=== PATIENT | male | born 1940 | race Caucasian/White ===

== ENCOUNTER 2017-07-01 19:23 | Inpatient (IN) | payer MEDICARE, BC ==
--- NOTE | 2017-07-01 19:51 | EDM.PDOC ---
ED HPI GENERAL MEDICAL PROBLEM - General Chief Complaint: Respiratory Problem Stated Complaint: [facility] Time Seen by Provider: 07/01/17 19:51 Source of Information: Reports: Patient, EMS Notes Reviewed History Limitations: Reports: No Limitations - History of Present Illness INITIAL COMMENTS - FREE TEXT/NARRATIVE: 76-year-old male presents the ED with his family members. Apparently he's been running a temperature at home for 2 days increased productive cough and shortness of breath on minimal exertion. Can lay down to sleep at all. In using his home nebulizer with minimal improvement. Off sounds very productive and apparently has slight green color to it no blood has been appreciated. O2 sats were in the low 80s when paramedics arrived. Apparently he is on oxygen 2 L/m at all times. He was placed on 6 L/m by the paramedics and arrived with sats of 97%. On reduction of his oxygen level to 4 L/m he remains 95-97% at rest. 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 Apparently his appetite is about half normal. He has not received any medication for fever or chills today. He did receive a DuoNeb treatment en route to the hospital by paramedics. Onset: Gradual (Family members report that he sounded very congested on Friday , June 27 during their Easter get-together. His breathing has continued to worsen since that time.) Onset Date: 06/26/17 Duration: Day(s):, Getting Worse Location: Reports: Chest (Increased trouble breathing working hard to breathe poor appetite fever over the last 48 hours for sure. No severe chills identified by any family member. Does have a productive sounding cough. Not seemed to get much improvement with his home nebulizer treatments.) Severity: Moderate Improves with: Reports: None Worsens with: Reports: Movement Context: Reports: Sick Contact. Denies: Activity, Lifting, Trauma, Other Associated Symptoms: Reports: Cough, cough w sputum, Fever/Chills, Loss of Appetite, Malaise, Shortness of Breath, Weakness. 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) (Just his breathing treatments.) - Related Data Allergies Allergy/AdvReac Type Severity Reaction Status Date / Time No Known Allergies Allergy Verified 07/01/17 19:26 Home Meds: Home Meds Albuterol Sulfate [Albuterol Sulfate HFA] 2 puff IH ASDIRECTED PRN 04/02/14 [ History] Aspirin [Halfprin] 81 mg PO DAILY 04/02/14 [History] Budesonide [Pulmicort] 0.5 mg INH DAILY 04/02/14 [History] Cyanocobalamin/Folic Acid [Vitamin J73-[id number] Acid] 1,000 mcg PO DAILY 04/02/14 [ History] Fish Oil/DHA/EPA [Fish Oil 1,200 MG] 1 cap PO DAILY 04/02/14 [History] Formoterol [Perforomist] 20 mcg INH BID 04/02/14 [History] Lisinopril 10 mg PO DAILY 04/02/14 [History] Multivitamin [Daily Vitamin] 1 tab PO DAILY 04/02/14 [History] Omeprazole [Prilosec] 20 mg PO DAILY 04/02/14 [History] Tiotropium [Spiriva] 18 mcg INH DAILY 04/02/14 [History] Vitamin E 400 unit PO ASDIRECTED 04/02/14 [History] Calcium Carbonate/Vitamin D3 [Calcium 600-Vit D3 500 Softgel] 1 cap PO DAILY 06/15 [History] Docusate Sodium [Colace] 100 mg PO DAILY PRN 07/01/17 [History] Past Medical History Cardiovascular History: Reports: Hypertension Respiratory History: Reports: COPD Musculoskeletal History: Reports: Other (See Below) Other Musculoskeletal History: kyphoplasty/ hip surgery Neurological History: Reports: CVA Oncologic (Cancer) History: Reports: Other (See Below) Other Oncologic History: lip cancer Social & Family History - Tobacco Use Smoking Status *Q: Former Smoker Years of Tobacco use: 60 - Alcohol Use Days Per Week of Alcohol Use: 1 Number of Drinks Per Day: 6 Total Drinks Per Week: 6 - Recreational Drug Use Recreational Drug Use: No - Living Situation & Occupation Living situation: Reports: Occupation: Retired ED ROS GENERAL - Review of Systems Review Of Systems: See Below Constitutional: Reports: Fever, Malaise, Weakness, Fatigue, Decreased Appetite, Weight Loss HEENT: Denies: Vision Change Respiratory: Reports: Shortness of Breath, Wheezing, Cough, Sputum. Denies: Hemoptysis Cardiovascular: Reports: Chest Pain (From coughing so much.), Dyspnea on Exertion (Chronically), Other (He is oxygen dependent usually 2 L/m all times.) . Denies: Blood Pressure Problem, Claudication, Edema, Lightheadedness, Orthopnea Endocrine: Reports: Fatigue GI/Abdominal: Reports: Decreased Appetite : Reports: Frequency, Other (Nocturia 3 known to have benign prostatic hypertrophy) Musculoskeletal: Reports: Back Pain, Joint Pain (Knees and hips at times.) Skin: Reports: Other (Always has a rather ruborous complexion.) Neurological: Reports: Trouble Speaking (This has occurred since he had a CVA at age 43. He has right-sided weakness. Impaired speech with marked dysarthria) , Difficulty Walking, Other Psychiatric: Reports: No Symptoms ED EXAM, GENERAL - Physical Exam Exam: See Below Exam Limited By: Physical Impairment (Marked severe dysarthria due to previous CVA making it very hard to understand what he is trying to keep communicate.) General Appearance: Mild Distress (He is frustrated by not being able to speak and get his point across.) Eye Exam: Bilateral Eye: Normal Inspection, PERRL Ears: Normal TMs Throat/Mouth: Other (Tongue is mildly dry and coated.) Head: Atraumatic, Normocephalic Neck: Normal Inspection, Limited Range of Motion (Crepitus on lateral rotation.) . No: Full Range of Motion, Lymphadenopathy (L), Lymphadenopathy (R) Respiratory/Chest: Respiratory Distress (Marked tachypnea at rest 34/m. O2 sats are 96% on 4 L/m by nasal cannula.), Decreased Breath Sounds (Decreased breath sounds to the lower 40% of lung light posteriorly with scattered expiratory wheezes.), Rhonchi (Ballard best upper anterior chest bilaterally.), Wheezing Cardiovascular: No Edema, No Gallop, No Murmur, No Rub, Tachycardia (Resting tachycardia of 1 20/m.) Peripheral Pulses: 1+: Posterior Tibial (L), Posterior Tibial (R), Dorsalis Pedis (L), Dorsalis Pedis (R) GI/Abdominal: Soft, Non-Tender, No Organomegaly (Bowel sounds are slightly hyperactive.), Distended (Diffusely tympanitic to percussion compatible with aerophagia. Hips not yet 8 supper.), Abnormal Bowel Sounds Back Exam: Normal Inspection, Full Range of Motion. No: CVA Tenderness (L), CVA Tenderness (R) Extremities: No Pedal Edema, Other (Patient has constant clenched fist on the right side with very limited movement of the arm at the shoulder or elbow i.e. flexion contractures. Similarly he is wearing an AFO brace on his right lower extremity. He gets around with aid of a quad cane utilizing his left hand.) Neurological: Alert, Oriented, CN II-XII Intact, Normal Cognition, Normal Gait Psychiatric: Normal Affect, Normal Mood Skin Exam: Warm, Dry, Intact, Normal Color, No Rash, Other (Does feel mildly warm to palpation suggesting fever nurse recorded temperature at 37.1.) EKG INTERPRETATION EKG Date: 07/01/17 Time: 19:30 Rhythm: Other Rate (Beats/Min): 107 [place]: Normal P-Wave: Enlarged (Biatrial enlargement.) QRS: Other (Mildly decreased voltage in the limb leads.) ST-T: Normal QT: Normal EKG Interpretation Comments: Abnormal ECG Course - Vital Signs Last Recorded V/S: Last Vital Signs Temp 36.6 C 07/01/17 20:07 Pulse 117 H 07/01/17 19:26 Resp 34 H 07/01/17 19:26 BP 125/71 07/01/17 19:26 Pulse Ox 93 L 07/01/17 19:59 - Orders/Labs/Meds Orders: Active Orders 24 hr Category Date Time Status Admission Status [Patient Status] [ADT] Routine ADT 07/01/17 21:19 Ordered EKG Documentation Completion [RC] STAT Care 07/01/17 19:57 Active Oxygen Therapy [RC] ASDIRECTED Care 07/01/17 19:58 Active RT Aerosol Therapy [RC] ASDIRECTED Care 07/01/17 19:59 Active Chest 1V Frontal [CR] Stat Exams 07/01/17 19:57 Taken ABG [BLOOD GAS ARTERIAL] [BG] Stat Lab 07/01/17 20:32 Results CULTURE BLOOD [BC] Stat Lab 07/01/17 20:03 Received CULTURE BLOOD [BC] Stat Lab 07/01/17 20:30 Received INFLUENZA A+B AG SCREEN [RM] Stat Lab 07/01/17 20:10 Ordered Levofloxacin/Dextrose 5%-Water [Levaquin in D5W 750 MG/ Med 07/01/17 20:42 Active 150 ML] 750 mg Premix Bag 1 bag IV ONETIME Sodium Chloride 0.9% [Normal Saline] 1,000 ml Med 07/01/17 20:00 Active IV ASDIRECTED Blood Culture x2 Reflex Set [OM.PC] Stat Oth 07/01/17 19:58 Ordered Medication Orders Sodium Chloride (Normal Saline) 1,000 mls @ 200 mls/hr IV ASDIRECTED IVA Last Admin: 07/01/17 20:05 Dose: 100 mls/hr Levofloxacin/Dextrose 750 mg/ (Premix) 150 mls @ 100 mls/hr IV ONETIME ONE Stop: 07/01/17 22:11 Last Admin: 07/01/17 20:49 Dose: 100 mls/hr Labs: Laboratory Tests 07/01/17 07/01/17 07/01/17 Range/Units 20:03 20:03 20:03 WBC 18.83 H (4.23-9.07) K/mm3 RBC 4.22 L (4.63-6.08) M/mm3 Hgb 13.2 L (13.7-17.5) gm/L Hct 39.4 L (40.1-51.0) % MCV 93.4 H (79.0-92.2) fl MCH 31.3 (25.7-32.2) pg MCHC 33.5 (32.2-35.5) g/dl RDW Std Deviation 46.1 H (35.1-43.9) fL Plt Count 179 (163-337) K/mm3 MPV 10.4 (9.4-12.3) fl Neutrophils % (Manual) 87 H (40-60) % Band Neutrophils % 1 (0-10) % Lymphocytes % (Manual) 9 L (20-40) % Atypical Lymphs % 0 % Monocytes % (Manual) 3 (2-10) % Eosinophils % (Manual) 0 L (0.8-7.0) % Basophils % (Manual) 0 L (0.2-1.2) Platelet Estimate Adequate Plt Morphology Comment Normal Anisocytosis 1+ slight RBC Morph Comment Not Reportable PT 12.1 (8.0-13.0) SECONDS INR 1.13 Puncture Site ABG pH (7.35-7.45) ABG pCO2 (35.0-45.0) mmHg ABG pO2 (80.0-100.0) mmHg ABG HCO3 (22.0-26.0) meq/L ABG O2 Saturation (96.0-97.0) % ABG Base Excess (-2-2.0) Randolph Test O2 Delivery Device Oxygen Flow Rate FiO2 (21.00-100.00) % Sodium 137 (136-145) mEq/L Potassium 4.3 (3.5-5.1) mEq/L Chloride 101 (98-107) mEq/L Carbon Dioxide 26 (21-32) mEq/L Anion Gap 14.3 (5-15) BUN 22 H (7-18) mg/dL Creatinine 1.0 (0.7-1.3) mg/dL Est Cr Clr Drug Dosing TNP Estimated GFR (MDRD) > 60 (>60) mL/min BUN/Creatinine Ratio 22.0 H (14-18) Glucose 210 H (83-115) mg/dL Calcium 9.3 (8.5-10.1) mg/dL Magnesium 1.7 L (1.8-2.4) mg/dl Total Bilirubin 0.7 (0.2-1.0) mg/dL AST 15 (15-37) U/L ALT 12 L (16-63) U/L Alkaline Phosphatase 78 (46-116) U/L CK-MB (CK-2) 1.5 (0-3.6) ng/ml Troponin I < 0.017 (0.00-0.056) ng/mL C-Reactive Protein 11.8 H* (<1.0) mg/dL NT-Pro-B Natriuret Pep (0-450) pg/mL Total Protein 6.8 (6.4-8.2) g/dl Albumin 3.3 L (3.4-5.0) g/dl Globulin 3.5 gm/dL Albumin/Globulin Ratio 0.9 L (1-2) 07/01/17 07/01/17 Range/Units 20:03 20:32 WBC (4.23-9.07) K/mm3 RBC (4.63-6.08) M/mm3 Hgb (13.7-17.5) gm/L Hct (40.1-51.0) % MCV (79.0-92.2) fl MCH (25.7-32.2) pg MCHC (32.2-35.5) g/dl RDW Std Deviation (35.1-43.9) fL Plt Count (163-337) K/mm3 MPV (9.4-12.3) fl Neutrophils % (Manual) (40-60) % Band Neutrophils % (0-10) % Lymphocytes % (Manual) (20-40) % Atypical Lymphs % % Monocytes % (Manual) (2-10) % Eosinophils % (Manual) (0.8-7.0) % Basophils % (Manual) (0.2-1.2) Platelet Estimate Plt Morphology Comment Anisocytosis RBC Morph Comment PT (8.0-13.0) SECONDS INR Puncture Site Lt radial ABG pH 7.43 (7.35-7.45) ABG pCO2 38.4 (35.0-45.0) mmHg ABG pO2 48.0 L (80.0-100.0) mmHg ABG HCO3 24.8 (22.0-26.0) meq/L ABG O2 Saturation 84.4 L (96.0-97.0) % ABG Base Excess 1.0 (-2-2.0) Randolph Test Positive O2 Delivery Device Nasal cannula Oxygen Flow Rate 4.0 FiO2 0.00 L (21.00-100.00) % Sodium (136-145) mEq/L Potassium (3.5-5.1) mEq/L Chloride (98-107) mEq/L Carbon Dioxide (21-32) mEq/L Anion Gap (5-15) BUN (7-18) mg/dL Creatinine (0.7-1.3) mg/dL Est Cr Clr Drug Dosing Estimated GFR (MDRD) (>60) mL/min BUN/Creatinine Ratio (14-18) Glucose (83-115) mg/dL Calcium (8.5-10.1) mg/dL Magnesium (1.8-2.4) mg/dl Total Bilirubin (0.2-1.0) mg/dL AST (15-37) U/L ALT (16-63) U/L Alkaline Phosphatase (46-116) U/L CK-MB (CK-2) (0-3.6) ng/ml Troponin I (0.00-0.056) ng/mL C-Reactive Protein (<1.0) mg/dL NT-Pro-B Natriuret Pep 266 (0-450) pg/mL Total Protein (6.4-8.2) g/dl Albumin (3.4-5.0) g/dl Globulin gm/dL Albumin/Globulin Ratio (1-2) Meds: Medications Generic Name Dose Route Start Last Admin Trade Name Freq PRN Reason Stop Dose Admin Sodium Chloride 1,000 mls @ 200 mls/hr 07/01/17 20:00 07/01/17 20:05 Normal Saline IV 100 mls/hr ASDIRECTED IVA Administration Levofloxacin/Dextrose 750 mg/ 150 mls @ 100 mls/hr 07/01/17 20:42 07/01/17 20 :49 Premix IV 07/01/17 22:11 100 mls/hr ONETIME ONE Administration Discontinued Medications Generic Name Dose Route Start Last Admin Trade Name Freq PRN Reason Stop Dose Admin Acetaminophen 650 mg 07/01/17 19:59 07/01/17 20:07 Tylenol PO 07/01/17 20:00 650 mg NOW ONE Administration Albuterol/Ipratropium 3 ml 07/01/17 19:59 07/01/17 20:09 Duoneb 3.0-0.5 Mg/3 Ml NEB 07/01/17 20:00 3 ml ONETIME ONE Administration - Radiology Interpretation Free Text/Narrative:: 76-year-old male who's had a previous cerebrovascular accident at age 43 and has trouble communicating ever since. He also has some mild right-sided residual paresis. He presents with family members indicating that he's been running a temperature off and on for the last 2 days with increased paroxysmal productive sounding cough. Of note he has significant end-stage COPD and is on oxygen 2 L/m all times at home. Sats were in the low 80s when the paramedics arrived and is placed on 6 L/m by nasal cannula. We were able to reduce this to 4 L/m to maintain sats of 95%. He is to Take it 34 per minute. Slightly warm to palpation over the nurses indicate no fever. Ear nose and throat exam just shows a dry oropharynx. Chest shows decreased air into the lower 40% of lung light bilaterally with bilateral expiratory wheezes rhonchi appreciated upper anterior chest. The abdomen is distended and typically to percussion but with aerophagia. It is soft palpation with no peritoneal signs. He has no dependent edema. Assessment is acute exacerbation of COPD with a fever. Plan influenza screen will be done. One view chest x-ray to rule out pneumonia. Blood cultures 2 were ordered. He will be given a DuoNeb once again while in the ED. He is using nebulizer machine at home with minimal relief the last few days. Is likely going to require hospitalization. Patient was given Tylenol 650 mg by mouth for fever relief. - Re-Assessments/Exams Free Text/Narrative Re-Assessment/Exam: 07/01/17 20:41 one view portable chest x-ray reveals mildly hyperinflated lung light. Cardiac silhouette is essentially normal with mild tortuosity of the thoracic aorta. There is an infiltrate/consolidation right upper lobe of the lung compatible with a pneumonia. Patient will be started on Levaquin 750 mg IV as he has no allergies. 07/01/17 21:05 Labs are back. White count is elevated at 18.83 with a left shift of 87% neutrophils and 1% bands. Hemoglobin is 13.2 with hematocrit of 39.4. Platelet count is 179,000. PT is 12.1 with an INR 1.13. Blood gases reveal a pH of 7.43 PCO2 is 38.4 indicating he has not a retainer. PO2 was 48 which is by definition respiratory failure. Bicarbonate is 24.8 O2 sats were 84.4%. These were apparently carried out at 4 L/m by nasal cannula. He will therefore be increased to 6 L by nasal cannula. Sodium is 137 with potassium of 4.3. Chloride 101 with a bicarbonate 26. And a gap is 14.3. B1 is 22 with a creatinine of 1.0. GFR remains greater than 60. Glucose is 210. Calcium is 9.3 magnesium slightly low at 1.7. Bilirubin 0.7 liver function normal cardiac markers normal with a troponin of less than 0.017. C-reactive protein is elevated at 11.8. BNP is 266. Influenza screens for a and B are negative. 07/01/17 21:06 case discussed with on-call hospitalist Dr. Staples the patient will be admitted to the med surgery floor on telemetry 07/01/17 21:20 blood pressure has fallen to systolic of 95/68. Will give him a 250 mils normal saline bolus and then increase IV rate which is normal saline to 200 mils per hour. Departure - Departure Time of Disposition: 21:20 Disposition: Admitted As Inpatient 64 Condition: Serious Clinical Impression: Asthma exacerbation in COPD, Cerebral arteriosclerosis with history of previous cerebrovascular accident Pneumonia Qualifiers: Pneumonia type: due to unspecified organism Laterality: right Lung location: upper lobe of lung Qualified Code(s): J18.1 - Lobar pneumonia, unspecified organism Respiratory failure Qualifiers: Chronicity: acute on chronic Respiratory failure complication: hypoxia Qualified Code(s): J96.21 - Acute and chronic respiratory failure with hypoxia - Discharge Information Referrals: Barry Delgado MD [Primary Care Provider] - Forms: ED Department Discharge - My Orders Last 24 Hours: My Active Orders 07/01/17 19:57 EKG Documentation Completion [RC] STAT Chest 1V Frontal [CR] Stat 07/01/17 19:58 Oxygen Therapy [RC] ASDIRECTED Blood Culture x2 Reflex Set [OM.PC] Stat 07/01/17 19:59 RT Aerosol Therapy [RC] ASDIRECTED 07/01/17 20:00 Sodium Chloride 0.9% [Normal Saline] 1,000 ml IV ASDIRECTED 07/01/17 20:03 CULTURE BLOOD [BC] Stat 07/01/17 20:10 INFLUENZA A+B AG SCREEN [RM] Stat 07/01/17 20:30 CULTURE BLOOD [BC] Stat 07/01/17 20:32 ABG [BLOOD GAS ARTERIAL] [BG] Stat 07/01/17 20:42 Levofloxacin/Dextrose 5%-Water [Levaquin in D5W 750 MG/150 ML] 750 mg Premix Bag 1 bag IV ONETIME 07/01/17 21:19 Admission Status [Patient Status] [ADT] Routine - Assessment/Plan Last 24 Hours: My Active Orders 07/01/17 19:57 EKG Documentation Completion [RC] STAT Chest 1V Frontal [CR] Stat 07/01/17 19:58 Oxygen Therapy [RC] ASDIRECTED Blood Culture x2 Reflex Set [OM.PC] Stat 07/01/17 19:59 RT Aerosol Therapy [RC] ASDIRECTED 07/01/17 20:00 Sodium Chloride 0.9% [Normal Saline] 1,000 ml IV ASDIRECTED 07/01/17 20:03 CULTURE BLOOD [BC] Stat 07/01/17 20:10 INFLUENZA A+B AG SCREEN [RM] Stat 07/01/17 20:30 CULTURE BLOOD [BC] Stat 07/01/17 20:32 ABG [BLOOD GAS ARTERIAL] [BG] Stat 07/01/17 20:42 Levofloxacin/Dextrose 5%-Water [Levaquin in D5W 750 MG/150 ML] 750 mg Premix Bag 1 bag IV ONETIME 07/01/17 21:19 Admission Status [Patient Status] [ADT] Routine
[2017-07-01] MEDS ORDERED: Acetaminophen 325 MG Tab PO ONE (19:59)
[2017-07-01] MEDS ORDERED: Albuterol/Ipratropium 3.0-0.5 MG/3 ML Neb Soln NEB ONE (19:59)
[2017-07-01] MEDS ORDERED: Sodium Chloride 0.9% 1,000 ML IV SCH (20:00)
[2017-07-01] MEDS ORDERED: Levofloxacin/Dextrose 5%-Water 750 MG in Premix Bag 1 BAG IV ONE (20:42)
[2017-07-01] MEDS ORDERED: Docusate Sodium 100 MG Cap PO PRN (21:30)
[2017-07-01] MEDS ORDERED: LORazepam 2 MG/ML SDV IVPUSH PRN (21:34)
[2017-07-01] MEDS ORDERED: hydrALAZINE 20 MG/ML SDV IVPUSH PRN (21:34)
[2017-07-01] MEDS ORDERED: LORazepam 2 MG/ML SDV IV PRN (21:36)
[2017-07-01] MEDS ORDERED: HYDROmorphone 0.5 MG/0.5 ML SYRINGE IVPUSH PRN (21:36)
[2017-07-01] MEDS ORDERED: Acetaminophen/HYDROcodone 325-5 MG Tab PO PRN (21:36)
[2017-07-01] MEDS ORDERED: Acetaminophen 325 MG Tab PO PRN (21:36)
[2017-07-01] MEDS ORDERED: Promethazine 6.25 MG in Sodium Chloride 0.9% 50 ML IV PRN (21:36)
[2017-07-01] MEDS ORDERED: Temazepam 7.5 MG Cap PO PRN (21:36)
[2017-07-01] MEDS ORDERED: Bisacodyl 5 MG Tab PO PRN (21:36)
[2017-07-01] MEDS ORDERED: Ondansetron 4 MG/2 ML SDV IV PRN (21:36)
[2017-07-01] MEDS ORDERED: Polyethylene Glycol 3350 Powder 17 GM Packet PO PRN (21:36)
[2017-07-01] MEDS ORDERED: guaiFENesin/Dextromethorphan 100-10 MG/5 ML Soln 5 ML Cup PO PRN (21:55)
--- NOTE | 2017-07-01 22:02 | PCM.HP ---
H&P History of Present Illness - General Date of Service: 07/01/17 Admit Problem/Dx: Admission Diagnosis/Problem Admission Diagnosis/Problem Pneumonia Source of Information: Patient, Old Records, Provider, RN Notes Reviewed History Limitations: Reports: No Limitations - History of Present Illness Initial Comments - Free Text/Narative: This is a 76 yo white male with past medical hx/o HTN, Advanced COPD, Chronic Hypoxia, Hx/o CVA w/ Residual Dysarthria, GERD, Hx/o Lip Cancer and Gait Instability who was brought in by EMS for evaluation of worsening shortness of breath associated with subjective fever, productive cough with greenish sputum, chest congestion along with decreased appetite that have been going on since Friday. Patient has chronic hypoxia on 2L NC. He was found considerably hypoxic with an O2 sat in the low 80s. His O2 sat improved to 97% when he was placed on 6L/m. His initial work up in ED shows a CBC significant for WBC of 18.83, RBC of 4.22 , hemoglobin of 13.2, hematocrit of 39.4, MCV of 92.4, RDW of 46.1, neutrophils of 87% and lymphocytes of 9%. His ABG shows a pH of 7.43, PCO2 of 38.4, PO2 of 48, HCO3 of 24.8, and O2 sat of 84.4 on 4 L nasal cannula. His chemistry is remarkable for BUN of 22, BS of 210, Mg of 1.7, ALT of 12, CRP of 11.8 and albumin of 3.3. His UA is negative for urinary tract infection. His CXR shows right upper lobe infiltrate. Patient is being admitted for Acute Respiratory Failure, COPD Exacerbation and CAP. He is full code. - Related Data Allergies/Adverse Reactions: Allergies Allergy/AdvReac Type Severity Reaction Status Date / Time No Known Allergies Allergy Verified 07/01/17 19:26 Home Medications: Home Meds Albuterol Sulfate [Albuterol Sulfate HFA] 2 puff IH ASDIRECTED PRN 04/02/14 [ History] Aspirin [Halfprin] 81 mg PO DAILY 04/02/14 [History] Budesonide [Pulmicort] 0.5 mg INH DAILY 04/02/14 [History] Cyanocobalamin/Folic Acid [Vitamin N95-Mlvmo Acid] 1,000 mcg PO DAILY 04/02/14 [ History] Fish Oil/DHA/EPA [Fish Oil 1,200 MG] 1 cap PO BID 04/02/14 [History] Formoterol [Perforomist] 20 mcg INH BID 04/02/14 [History] Lisinopril 10 mg PO DAILY 04/02/14 [History] Multivitamin [Daily Vitamin] 1 tab PO DAILY 04/02/14 [History] Omeprazole [Prilosec] 20 mg PO DAILY 04/02/14 [History] Tiotropium [Spiriva] 18 mcg INH DAILY 04/02/14 [History] Vitamin E 400 unit PO ASDIRECTED 04/02/14 [History] Ascorbate Calcium [Vitamin C] 500 mg PO DAILY PRN 07/01/17 [History] Calcium Carbonate/Vitamin D3 [Calcium 600-Vit D3 500 Softgel] 1 cap PO DAILY 06/15 [History] Docusate Sodium [Colace] 100 mg PO DAILY PRN 07/01/17 [History] Past Medical History Cardiovascular History: Reports: Hypertension Respiratory History: Reports: COPD Musculoskeletal History: Reports: Other (See Below) Other Musculoskeletal History: kyphoplasty/ hip surgery Neurological History: Reports: CVA Oncologic (Cancer) History: Reports: Other (See Below) Other Oncologic History: lip cancer Social & Family History - Tobacco Use Smoking Status *Q: Former Smoker Years of Tobacco use: 60 Used Tobacco, but Quit: Yes Month/Year Tobacco Last Used: 60 yrs - Alcohol Use Days Per Week of Alcohol Use: 1 Number of Drinks Per Day: 6 Total Drinks Per Week: 6 - Recreational Drug Use Recreational Drug Use: No - Living Situation & Occupation Living situation: Reports: Occupation: Retired H&P Review of Systems - Review of Systems: Review Of Systems: See Below General: Reports: Fever, Malaise, Weakness, Fatigue, Decreased Appetite HEENT: Reports: No Symptoms Pulmonary: Reports: Shortness of Breath, Wheezing, Cough, Sputum Cardiovascular: Reports: Chest Pain, Dyspnea on Exertion. Denies: Edema, Lightheadedness Gastrointestinal: Reports: Decreased Appetite. Denies: Abdominal Pain, Difficulty Swallowing, Nausea, Vomiting Genitourinary: Reports: Frequency Musculoskeletal: Reports: Back Pain, Joint Pain Psychiatric: Denies: Confusion, Depression, Mood Lability, Agitation, Hallucinations, Suicidal Ideation Neurological: Reports: Pre-Existing Deficit, Trouble Speaking (2/2 CVA), Difficulty Walking, Weakness, Other (Dysarthria). Denies: Confusion Hematologic/Lymphatic: Reports: No Symptoms Immunologic: Reports: No Symptoms Exam - Exam Exam: See Below - Vital Signs Vital Signs: Last Vital Signs Temp 36.6 C 07/01/17 20:07 Pulse 117 H 07/01/17 19:26 Resp 34 H 07/01/17 19:26 BP 125/71 07/01/17 19:26 Pulse Ox 93 L 07/01/17 19:59 Weight: 68.492 kg - Exam General: Alert, Cooperative, Mild Distress HEENT: Conjunctiva Clear, Hearing Intact, Mucosa Moist & [place], Nares Patent, Normal Nasal Septum, Pupils Equal, Pupils Reactive Neck: Supple, Trachea Midline Lungs: Decreased Breath Sounds, Rhonchi, Wheezing. No: Normal Respiratory Effort Cardiovascular: Regular Rhythm, Tachycardia GI/Abdominal Exam: Normal Bowel Sounds, Soft, Non-Tender, No Organomegaly, No Distention, No Abnormal Bruit, No Mass (Male) Exam: Deferred Back Exam: Normal Inspection, Decreased Range of Motion Extremities: Normal Inspection, Non-Tender, No Pedal Edema, Normal Capillary Refill, Limited Range of Motion, Other Peripheral Pulses: 2+: Posterior Tibial (L), Posterior Tibial (R), Dorsalis Pedis (L), Dorsalis Pedis (R) Skin: Warm, Dry, Intact. No: Rash, [place] Neuro Extensive - Mental Status: Normal Cognition, Memory Intact Neuro Extensive - Motor, Sensory, Reflexes: CN II-XII Intact, Abnormal Gait Psychiatric: Alert, Normal Affect, Normal Mood - Patient Data Lab Results Last 24 hrs: Laboratory Results - last 24 hr 07/01/17 07/01/17 07/01/17 Range/Units 20:03 20:03 20:03 WBC 18.83 H (4.23-9.07) K/mm3 RBC 4.22 L (4.63-6.08) M/mm3 Hgb 13.2 L (13.7-17.5) gm/L Hct 39.4 L (40.1-51.0) % MCV 93.4 H (79.0-92.2) fl MCH 31.3 (25.7-32.2) pg MCHC 33.5 (32.2-35.5) g/dl RDW Std Deviation 46.1 H (35.1-43.9) fL Plt Count 179 (163-337) K/mm3 MPV 10.4 (9.4-12.3) fl Neutrophils % (Manual) 87 H (40-60) % Band Neutrophils % 1 (0-10) % Lymphocytes % (Manual) 9 L (20-40) % Atypical Lymphs % 0 % Monocytes % (Manual) 3 (2-10) % Eosinophils % (Manual) 0 L (0.8-7.0) % Basophils % (Manual) 0 L (0.2-1.2) Platelet Estimate Adequate Plt Morphology Comment Normal Anisocytosis 1+ slight RBC Morph Comment Not Reportable PT 12.1 (8.0-13.0) SECONDS INR 1.13 Puncture Site ABG pH (7.35-7.45) ABG pCO2 (35.0-45.0) mmHg ABG pO2 (80.0-100.0) mmHg ABG HCO3 (22.0-26.0) meq/L ABG O2 Saturation (96.0-97.0) % ABG Base Excess (-2-2.0) Randolph Test O2 Delivery Device Oxygen Flow Rate FiO2 (21.00-100.00) % Sodium 137 (136-145) mEq/L Potassium 4.3 (3.5-5.1) mEq/L Chloride 101 (98-107) mEq/L Carbon Dioxide 26 (21-32) mEq/L Anion Gap 14.3 (5-15) BUN 22 H (7-18) mg/dL Creatinine 1.0 (0.7-1.3) mg/dL Est Cr Clr Drug Dosing TNP Estimated GFR (MDRD) > 60 (>60) mL/min BUN/Creatinine Ratio 22.0 H (14-18) Glucose 210 H (83-115) mg/dL Calcium 9.3 (8.5-10.1) mg/dL Magnesium 1.7 L (1.8-2.4) mg/dl Total Bilirubin 0.7 (0.2-1.0) mg/dL AST 15 (15-37) U/L ALT 12 L (16-63) U/L Alkaline Phosphatase 78 (46-116) U/L CK-MB (CK-2) 1.5 (0-3.6) ng/ml Troponin I < 0.017 (0.00-0.056) ng/mL C-Reactive Protein 11.8 H* (<1.0) mg/dL NT-Pro-B Natriuret Pep (0-450) pg/mL Total Protein 6.8 (6.4-8.2) g/dl Albumin 3.3 L (3.4-5.0) g/dl Globulin 3.5 gm/dL Albumin/Globulin Ratio 0.9 L (1-2) 07/01/17 07/01/17 Range/Units 20:03 20:32 WBC (4.23-9.07) K/mm3 RBC (4.63-6.08) M/mm3 Hgb (13.7-17.5) gm/L Hct (40.1-51.0) % MCV (79.0-92.2) fl MCH (25.7-32.2) pg MCHC (32.2-35.5) g/dl RDW Std Deviation (35.1-43.9) fL Plt Count (163-337) K/mm3 MPV (9.4-12.3) fl Neutrophils % (Manual) (40-60) % Band Neutrophils % (0-10) % Lymphocytes % (Manual) (20-40) % Atypical Lymphs % % Monocytes % (Manual) (2-10) % Eosinophils % (Manual) (0.8-7.0) % Basophils % (Manual) (0.2-1.2) Platelet Estimate Plt Morphology Comment Anisocytosis RBC Morph Comment PT (8.0-13.0) SECONDS INR Puncture Site Lt radial ABG pH 7.43 (7.35-7.45) ABG pCO2 38.4 (35.0-45.0) mmHg ABG pO2 48.0 L (80.0-100.0) mmHg ABG HCO3 24.8 (22.0-26.0) meq/L ABG O2 Saturation 84.4 L (96.0-97.0) % ABG Base Excess 1.0 (-2-2.0) Randolph Test Positive O2 Delivery Device Nasal cannula Oxygen Flow Rate 4.0 FiO2 0.00 L (21.00-100.00) % Sodium (136-145) mEq/L Potassium (3.5-5.1) mEq/L Chloride (98-107) mEq/L Carbon Dioxide (21-32) mEq/L Anion Gap (5-15) BUN (7-18) mg/dL Creatinine (0.7-1.3) mg/dL Est Cr Clr Drug Dosing Estimated GFR (MDRD) (>60) mL/min BUN/Creatinine Ratio (14-18) Glucose (83-115) mg/dL Calcium (8.5-10.1) mg/dL Magnesium (1.8-2.4) mg/dl Total Bilirubin (0.2-1.0) mg/dL AST (15-37) U/L ALT (16-63) U/L Alkaline Phosphatase (46-116) U/L CK-MB (CK-2) (0-3.6) ng/ml Troponin I (0.00-0.056) ng/mL C-Reactive Protein (<1.0) mg/dL NT-Pro-B Natriuret Pep 266 (0-450) pg/mL Total Protein (6.4-8.2) g/dl Albumin (3.4-5.0) g/dl Globulin gm/dL Albumin/Globulin Ratio (1-2) Result Diagrams: 07/02/17 05:50 07/02/17 05:50 Arnold Results Last 24 hrs: Microbiology 07/01/17 20:10 Influenza Type A Antigen Screen - Final Nasal Aspirate, Unspecified NEGATIVE INFLUENZA A VIRUS AG Influenza Type B Antigen Screen - Final NEGATIVE INFLUENZA B VIRUS AG EKG INTERPRETATION EKG Date: 07/01/17 Time: 19:30 Rhythm: Other (Tachycardia) Rate (Beats/Min): 107 [place]: Normal P-Wave: Enlarged QRS: Other (decreased voltage) ST-T: Normal QT: Normal Problem List Initiated/Reviewed/Updated: Yes Orders Last 24hrs: Active Orders 24 hr Category Date Time Status Admission Status [Patient Status] [ADT] Routine ADT 07/01/17 21:19 Active EKG Documentation Completion [RC] STAT Care 07/01/17 19:57 Active Flutter Valve Therapy [RT Chest Physiotherapy] [RC] Care 07/01/17 21:55 Ordered ASDIRECTED Height and Weight [RC] DAILY Care 07/01/17 21:36 Ordered Incentive Spirometry [RT Incentive Spirometry] [RC] Care 07/01/17 21:54 Ordered ASDIRECTED Intake and Output [] QSHIFT Care 07/01/17 21:39 Ordered Oxygen Therapy [RC] ASDIRECTED Care 07/01/17 19:58 Active Oxygen Therapy [RC] PRN Care 07/01/17 21:36 Ordered Pulse Oximetry [RC] PRN Care 07/01/17 21:39 Ordered RT Aerosol Therapy [RC] ASDIRECTED Care 07/01/17 19:59 Active Up With Assistance [RC] ASDIRECTED Care 07/01/17 21:36 Ordered Up ad Brandie [RC] ASDIRECTED Care 07/01/17 21:36 Ordered VTE/DVT Education [RC] PER UNIT ROUTINE Care 07/01/17 21:36 Ordered Vital Signs [RC] Q4H Care 07/01/17 21:36 Ordered Consult to Spiritual Care [CONS] Routine Cons 07/01/17 21:45 Ordered OT Evaluation and Treatment [CONS] Routine Cons 07/01/17 21:45 Ordered PT Evaluation and Treatment [CONS] Routine Cons 07/01/17 21:45 Ordered Respiratory Care Assess and Treatment [CONS] Routine Cons 07/01/17 21:45 Ordered Regular Diet [DIET] Diet 07/01/17 Dinner Ordered Chest 1V Frontal [CR] AM Exams 07/03/17 05:11 Ordered Chest 1V Frontal [CR] Stat Exams 07/01/17 19:57 Taken ABG [BLOOD GAS ARTERIAL] [BG] Stat Lab 07/01/17 20:32 Results BASIC METABOLIC PANEL,BMP [CHEM] AM Lab 07/02/17 05:11 Ordered BASIC METABOLIC PANEL,BMP [CHEM] AM Lab 07/03/17 05:11 Ordered BASIC METABOLIC PANEL,BMP [CHEM] AM Lab 07/04/17 05:11 Ordered BASIC METABOLIC PANEL,BMP [CHEM] AM Lab 07/05/17 05:11 Ordered BASIC METABOLIC PANEL,BMP [CHEM] AM Lab 07/06/17 05:11 Ordered BASIC METABOLIC PANEL,BMP [CHEM] AM Lab 07/07/17 05:11 Ordered C-REACTIVE PROTEIN [CHEM] AM Lab 07/02/17 05:11 Ordered C-REACTIVE PROTEIN [CHEM] AM Lab 07/03/17 05:11 Ordered C-REACTIVE PROTEIN [CHEM] AM Lab 07/04/17 05:11 Ordered C-REACTIVE PROTEIN [CHEM] AM Lab 07/05/17 05:11 Ordered C-REACTIVE PROTEIN [CHEM] AM Lab 07/06/17 05:11 Ordered C-REACTIVE PROTEIN [CHEM] AM Lab 07/07/17 05:11 Ordered CBC W/O DIFF,HEMOGRAM [HEME] AM Lab 07/02/17 05:11 Ordered CBC W/O DIFF,HEMOGRAM [HEME] AM Lab 07/03/17 05:11 Ordered CBC W/O DIFF,HEMOGRAM [HEME] AM Lab 07/04/17 05:11 Ordered CBC W/O DIFF,HEMOGRAM [HEME] AM Lab 07/05/17 05:11 Ordered CBC W/O DIFF,HEMOGRAM [HEME] AM Lab 07/06/17 05:11 Ordered CBC W/O DIFF,HEMOGRAM [HEME] AM Lab 07/07/17 05:11 Ordered CULTURE BLOOD [BC] Stat Lab 07/01/17 20:03 Received CULTURE BLOOD [BC] Stat Lab 07/01/17 20:30 Received CULTURE SPUTUM + SMEAR [RM] Stat Lab 07/01/17 21:45 Ordered CULTURE URINE [RM] Stat Lab 07/01/17 21:45 Ordered INFLUENZA A+B AG SCREEN [RM] Stat Lab 07/01/17 20:10 Ordered MAGNESIUM [CHEM] AM Lab 07/02/17 05:11 Ordered MAGNESIUM [CHEM] AM Lab 07/03/17 05:11 Ordered MAGNESIUM [CHEM] AM Lab 07/04/17 05:11 Ordered MAGNESIUM [CHEM] AM Lab 07/05/17 05:11 Ordered MAGNESIUM [CHEM] AM Lab 07/06/17 05:11 Ordered MAGNESIUM [CHEM] AM Lab 07/07/17 05:11 Ordered MYCOPLASMA PNEUMONIAE IGM AB [CHEM] Stat Lab 07/01/17 21:52 Ordered RESPIRATORY PANEL BY PCR [MREF] Stat Lab 07/01/17 21:53 Ordered STREP PNEUMONIAE ANTIGEN [MREF] Stat Lab 07/01/17 21:52 Ordered Acetaminophen [Tylenol] Med 07/01/17 21:36 Ordered 650 mg PO Q4H PRN Acetaminophen/HYDROcodone [Knapp 325-5 MG] Med 07/01/17 21:36 Ordered 1 tab PO Q4H PRN Aspirin [Halfprin] Med 07/02/17 09:00 Ordered 81 mg PO DAILY Bisacodyl [Dulcolax] Med 07/01/17 21:36 Ordered 5 mg PO DAILY PRN Budesonide [Pulmicort] Med 07/02/17 09:00 Ordered 0.5 mg INH DAILY Calcium Carbonate/Vitamin D3 [Calcium 600-Vit D3 500 Med 07/02/17 09:00 Ordered Softgel] 1 cap PO DAILY Cyanocobalamin/Folic Acid [Vitamin V58-Jqhhe Acid] Med 07/02/17 09:00 Ordered 1,000 mcg PO DAILY Dextromethorphan/guaiFENesin [Robitussin DM] Med 07/01/17 21:55 Ordered 10 ml PO Q4H PRN Docusate Sodium [Colace] Med 07/01/17 21:30 Ordered 100 mg PO DAILY PRN Enoxaparin [Lovenox] Med 07/02/17 09:00 Ordered 30 mg SUBCUT DAILY Fish Oil/DHA/EPA [Fish Oil 1,200 MG] Med 07/02/17 09:00 Ordered 1 cap PO DAILY Formoterol [Perforomist] Med 07/02/17 09:00 Ordered 20 mcg INH BID HYDROmorphone [Dilaudid] Med 07/01/17 21:36 Ordered 0.25 mg IVPUSH Q2H PRN LORazepam [Ativan] Med 07/01/17 21:36 Ordered 0.5 mg IV Q6H PRN LORazepam [Ativan] Med 07/01/17 21:34 Ordered 2 mg IVPUSH Q4H PRN Levofloxacin/Dextrose 5%-Water [Levaquin in D5W 750 MG/ Med 07/01/17 20:42 Active 150 ML] 750 mg Premix Bag 1 bag IV ONETIME Levofloxacin/Dextrose 5%-Water [Levaquin in D5W 750 MG/ Med 07/02/17 09:00 Ordered 150 ML] 750 mg Premix Bag 1 bag IV Q24H Magnesium Rep Pharmacy to Dose [Pharmacy to Dose - Med 07/01/17 21:45 Ordered Magnesium Replacement] 1 dose .XX ASDIRECTED Magnesium Sulfate/D5W [Magnesium 1 GM in D5W 100 ML] 1 Med 07/01/17 21:58 Ordered gm Premix Bag 1 bag IV ONETIME Metoprolol Tartrate [Lopressor] Med 07/01/17 21:34 Ordered 5 mg IVPUSH Q4H PRN Ondansetron [Zofran] Med 07/01/17 21:36 Ordered 4 mg IV Q6H PRN Polyethylene Glycol 3350 [MiraLAX] Med 07/01/17 21:36 Ordered 17 gm PO DAILY PRN Potassium Rep Pharmacy to Dose [Pharmacy to Dose - Med 07/01/17 21:45 Ordered Potassium Replacement] 1 dose .XX ASDIRECTED Promethazine [Phenergan] 6.25 mg Med 07/01/17 21:36 Ordered Sodium Chloride 0.9% [Normal Saline] 50 ml IV Q6H Sodium Chloride 0.9% [Normal Saline] 1,000 ml Med 07/01/17 20:00 Active IV ASDIRECTED Temazepam [Restoril] Med 07/01/17 21:36 Ordered 7.5 mg PO BEDTIME PRN guaiFENesin [Mucinex] Med 07/01/17 21:00 Ordered 600 mg PO BID hydrALAZINE [Apresoline] Med 07/01/17 21:34 Ordered 10 mg IVPUSH Q4H PRN Blood Culture x2 Reflex Set [OM.PC] Stat Oth 07/01/17 19:58 Ordered Resuscitation Status Routine Resus Stat 07/01/17 21:36 Ordered Medication Orders Acetaminophen (Tylenol) 650 mg PO Q4H PRN PRN Reason: Pain (Mild 1-3)/fever Hydrocodone Bitart/Acetaminophen ([place] 325-5 Mg) 1 tab PO Q4H PRN PRN Reason: Pain (moderate 4-6) Aspirin (Halfprin) 81 mg PO DAILY IVA Bisacodyl (Dulcolax) 5 mg PO DAILY PRN PRN Reason: Constipation Budesonide (Pulmicort) 0.5 mg INH DAILY IVA Calcium Carbonate (Calcium Carbonate/Vitamin D 600 Mg-200 Unit) 1 tab PO DAILY IVA Cyanocobalamin (Vitamin B12) 1,000 mcg PO DAILY IVA Docusate Sodium (Colace) 100 mg PO DAILY PRN PRN Reason: Constipation Enoxaparin Sodium (Lovenox) 30 mg SUBCUT DAILY IVA Guaifenesin (Mucinex) 600 mg PO BID IVA Guaifenesin/Phenylephrine HCl (Robitussin Dm) 10 ml PO Q4H PRN PRN Reason: Cough Hydralazine HCl (Apresoline) 10 mg IVPUSH Q4H PRN PRN Reason: Hypertension Hydromorphone HCl (Dilaudid) 0.25 mg IVPUSH Q2H PRN PRN Reason: Pain (severe 7-10) Sodium Chloride (Normal Saline) 1,000 mls @ 100 mls/hr IV ASDIRECTED [facility] Last Admin: 07/01/17 20:05 Dose: 100 mls/hr Levofloxacin/Dextrose 750 mg/ (Premix) 150 mls @ 100 mls/hr IV ONETIME ONE Stop: 07/01/17 22:11 Last Admin: 07/01/17 20:49 Dose: 100 mls/hr Promethazine HCl 6.25 mg/ (Sodium Chloride) 50.25 mls @ 100 mls/hr IV Q6H PRN PRN Reason: Nausea/Vomiting Lorazepam (Ativan) 2 mg IVPUSH Q4H PRN PRN Reason: Seizures Lorazepam (Ativan) 0.5 mg IV Q6H PRN PRN Reason: Anxiety Magnesium Sulfate (Pharmacy To Dose - Magnesium Replacement) 1 dose .XX ASDIRECTED [facility] Metoprolol Tartrate (Lopressor) 5 mg IVPUSH Q4H PRN PRN Reason: Tachycardia Non-Formulary Medication (Fish Oil/Dha/Epa [Fish Oil 1,200 Mg]) 1 cap PO DAILY [facility] Non-Formulary Medication (Formoterol [Perforomist]) 20 mcg INH BID [facility] Ondansetron HCl (Zofran) 4 mg IV Q6H PRN PRN Reason: Nausea/Vomiting Polyethylene Glycol (Miralax) 17 gm PO DAILY PRN PRN Reason: Constipation Potassium Chloride (Pharmacy To Dose - Potassium Replacement) 1 dose .XX ASDIRECTED [facility] Temazepam (Restoril) 7.5 mg PO BEDTIME PRN PRN Reason: Sleep Assessment/Plan Comment:: Assessment/Plan: Acute: Acute Respiratory Failure, Hypoxic - Acute on chronic - 2/2 CAP and COPD - Has baseline pulmonary Insufficiency - O2 dependent on 2L NC--> now on 6L NC - NIPPV if needed CAP vs Aspiration Syndrome - Risk Factors: COPD, Dysarthria, Chronic Hypoxia on 2L NC, and Pyrosis/ Reflux Disease - CURB 65 score is 4: meets criteria for inpatient with possible ICU admission - CXR shows right upper lobe infiltrate - Was on 2L NC but now on 6L - IV Levaquin, Bronchodilators, Decongestant/Expectorant, RT Care and Supplemental O2 - FV/IS as directed - Mycoplasma pneumonia ag, Strep pneumonia ag, Sputum Culture, Respiratory Panel, and Blood Cultures - Serial CXR as indicated - [employer] eval in AM COPD Exacerbation - Advanced - IV Solumedrol and Smooth Muscle Relaxants - Additional treatment as above Leukocytosis - 2/2 Above - WBC 18K and CRP 11 - Monitor Hypomagnesemia - 2/2 poor intake and respiratory insufficiency - Replete and monitor Chronic: HTN Hx/o CVA GERD Hx/o Lip Cancer Gait Instability Plan: Admit to Med-Surg w/ Tele Routine AM Labs Resume Home Meds Aspiration and Fall Precautions RT/PT/OT consult SW/CM for d/c planning Code status: 1
[2017-07-01] MEDS ORDERED: 50% Dextrose in Water 50 ML Syringe IVPUSH PRN (22:54)
[2017-07-01] MEDS ORDERED: methylPREDNISolone Sodium Succinate 125 MG/2 ML SDV IVPUSH ONE (23:00)
[2017-07-01] MEDS: guaiFENesin 600 MG Tab.ER PO SCH (23:56)
[2017-07-02] MEDS: Albuterol/Ipratropium 3.0-0.5 MG/3 ML Neb Soln NEB PRN ×4 (00:56→20:28)
[2017-07-02] MEDS: methylPREDNISolone Sodium Succinate 40 MG/1 ML SDV IVPUSH SCH ×3 (06:16→18:13)
[2017-07-02] MEDS: Sodium Chloride 0.9% 1,000 ML IV SCH ×2 (06:16→20:27)
--- NOTE | 2017-07-02 07:09 | PCM.PN ---
- General Info Date of Service: 07/02/17 Admission Dx/Problem (Free Text): Admission Diagnosis/Problem Admission Diagnosis/Problem Pneumonia Subjective Update: Follow Up Functional Status: Reports: Pain Controlled, Tolerating Diet, Ambulating, Urinating - Review of Systems General: Denies: Fever, Weakness, Fatigue, Malaise, Chills HEENT: Reports: No Symptoms, Other (baseline dysarthria) Pulmonary: Denies: Shortness of Breath, Cough, Sputum Cardiovascular: Denies: Chest Pain, Palpitations, Dyspnea on Exertion, Lightheadedness Gastrointestinal: Denies: Abdominal Pain, Nausea, Vomiting Genitourinary: Reports: No Symptoms Musculoskeletal: Reports: No Symptoms Skin: Denies: Cyanosis, Mottled, Pallor, Diaphoresis, Pruritis Neurological: Reports: Weakness, Gait Disturbance. Denies: Confusion, Difficulty Walking Psychiatric: Denies: Depression, Anxiety, Agitation, Hallucinations Systems Review Comment:: No overnight or acute issues. He slept pretty good and feels better this morning. He has no complaints. His WBC is now down to 15K. - Patient Data Vitals - Most Recent: Last Vital Signs Temp 36.7 C 07/02/17 04:01 Pulse 84 07/02/17 04:01 Resp 20 07/02/17 04:01 BP 107/57 L 07/02/17 04:01 Pulse Ox 94 L 07/02/17 04:01 Weight - Most Recent: 68.492 kg I&O - Last 24 Hours: Intake & Output 07/01/17 07/02/17 07/02/17 22:59 06:59 14:59 Intake Total 850 Output Total 1000 Balance -150 Lab Results Last 24 Hours: Laboratory Results - last 24 hr 07/01/17 07/01/17 07/01/17 Range/Units 20:03 20:03 20:03 WBC 18.83 H (4.23-9.07) K/mm3 RBC 4.22 L (4.63-6.08) M/mm3 Hgb 13.2 L (13.7-17.5) gm/L Hct 39.4 L (40.1-51.0) % MCV 93.4 H (79.0-92.2) fl MCH 31.3 (25.7-32.2) pg MCHC 33.5 (32.2-35.5) g/dl RDW Std Deviation 46.1 H (35.1-43.9) fL Plt Count 179 (163-337) K/mm3 MPV 10.4 (9.4-12.3) fl Neutrophils % (Manual) 87 H (40-60) % Band Neutrophils % 1 (0-10) % Lymphocytes % (Manual) 9 L (20-40) % Atypical Lymphs % 0 % Monocytes % (Manual) 3 (2-10) % Eosinophils % (Manual) 0 L (0.8-7.0) % Basophils % (Manual) 0 L (0.2-1.2) Platelet Estimate Adequate Plt Morphology Comment Normal Anisocytosis 1+ slight RBC Morph Comment Not Reportable PT 12.1 (8.0-13.0) SECONDS INR 1.13 Puncture Site ABG pH (7.35-7.45) ABG pCO2 (35.0-45.0) mmHg ABG pO2 (80.0-100.0) mmHg ABG HCO3 (22.0-26.0) meq/L ABG O2 Saturation (96.0-97.0) % ABG Base Excess (-2-2.0) Randolph Test O2 Delivery Device Oxygen Flow Rate FiO2 (21.00-100.00) % Sodium 137 (136-145) mEq/L Potassium 4.3 (3.5-5.1) mEq/L Chloride 101 (98-107) mEq/L Carbon Dioxide 26 (21-32) mEq/L Anion Gap 14.3 (5-15) BUN 22 H (7-18) mg/dL Creatinine 1.0 (0.7-1.3) mg/dL Est Cr Clr Drug Dosing TNP Estimated GFR (MDRD) > 60 (>60) mL/min BUN/Creatinine Ratio 22.0 H (14-18) Glucose 210 H (83-115) mg/dL POC Glucose (83-110) mg/dL Calcium 9.3 (8.5-10.1) mg/dL Magnesium 1.7 L (1.8-2.4) mg/dl Total Bilirubin 0.7 (0.2-1.0) mg/dL AST 15 (15-37) U/L ALT 12 L (16-63) U/L Alkaline Phosphatase 78 (46-116) U/L CK-MB (CK-2) 1.5 (0-3.6) ng/ml Troponin I < 0.017 (0.00-0.056) ng/mL C-Reactive Protein 11.8 H* (<1.0) mg/dL NT-Pro-B Natriuret Pep (0-450) pg/mL Total Protein 6.8 (6.4-8.2) g/dl Albumin 3.3 L (3.4-5.0) g/dl Globulin 3.5 gm/dL Albumin/Globulin Ratio 0.9 L (1-2) Urine Color (Yellow) Urine Appearance (Clear) Urine pH (5.0-8.0) Ur Specific Amelia (1.005-1.030) Urine Protein (Negative) Urine Glucose (UA) (Negative) Urine Ketones (Negative) Urine Occult Blood (Negative) Urine Nitrite (Negative) Urine Bilirubin (Negative) Urine Urobilinogen (0.2-1.0) Ur Leukocyte Esterase (Negative) Urine RBC (0-5) /hpf Urine WBC (0-5) /hpf Ur Epithelial Cells (0-5) /hpf Ur Squamous Epith Cells (0-5) /hpf Urine Bacteria (FEW) /hpf Urine Mucus (FEW) /hpf Mycoplasma pneumon IgM (NEGATIVE) 07/01/17 07/01/17 07/01/17 Range/Units 20:03 20:03 20:32 WBC (4.23-9.07) K/mm3 RBC (4.63-6.08) M/mm3 Hgb (13.7-17.5) gm/L Hct (40.1-51.0) % MCV (79.0-92.2) fl MCH (25.7-32.2) pg MCHC (32.2-35.5) g/dl RDW Std Deviation (35.1-43.9) fL Plt Count (163-337) K/mm3 MPV (9.4-12.3) fl Neutrophils % (Manual) (40-60) % Band Neutrophils % (0-10) % Lymphocytes % (Manual) (20-40) % Atypical Lymphs % % Monocytes % (Manual) (2-10) % Eosinophils % (Manual) (0.8-7.0) % Basophils % (Manual) (0.2-1.2) Platelet Estimate Plt Morphology Comment Anisocytosis RBC Morph Comment PT (8.0-13.0) SECONDS INR Puncture Site Lt radial ABG pH 7.43 (7.35-7.45) ABG pCO2 38.4 (35.0-45.0) mmHg ABG pO2 48.0 L (80.0-100.0) mmHg ABG HCO3 24.8 (22.0-26.0) meq/L ABG O2 Saturation 84.4 L (96.0-97.0) % ABG Base Excess 1.0 (-2-2.0) Randolph Test Positive O2 Delivery Device Nasal cannula Oxygen Flow Rate 4.0 FiO2 (21.00-100.00) % Sodium (136-145) mEq/L Potassium (3.5-5.1) mEq/L Chloride (98-107) mEq/L Carbon Dioxide (21-32) mEq/L Anion Gap (5-15) BUN (7-18) mg/dL Creatinine (0.7-1.3) mg/dL Est Cr Clr Drug Dosing Estimated GFR (MDRD) (>60) mL/min BUN/Creatinine Ratio (14-18) Glucose (83-115) mg/dL POC Glucose (83-110) mg/dL Calcium (8.5-10.1) mg/dL Magnesium (1.8-2.4) mg/dl Total Bilirubin (0.2-1.0) mg/dL AST (15-37) U/L ALT (16-63) U/L Alkaline Phosphatase (46-116) U/L CK-MB (CK-2) (0-3.6) ng/ml Troponin I (0.00-0.056) ng/mL C-Reactive Protein (<1.0) mg/dL NT-Pro-B Natriuret Pep 266 (0-450) pg/mL Total Protein (6.4-8.2) g/dl Albumin (3.4-5.0) g/dl Globulin gm/dL Albumin/Globulin Ratio (1-2) Urine Color (Yellow) Urine Appearance (Clear) Urine pH (5.0-8.0) Ur Specific Amelia (1.005-1.030) Urine Protein (Negative) Urine Glucose (UA) (Negative) Urine Ketones (Negative) Urine Occult Blood (Negative) Urine Nitrite (Negative) Urine Bilirubin (Negative) Urine Urobilinogen (0.2-1.0) Ur Leukocyte Esterase (Negative) Urine RBC (0-5) /hpf Urine WBC (0-5) /hpf Ur Epithelial Cells (0-5) /hpf Ur Squamous Epith Cells (0-5) /hpf Urine Bacteria (FEW) /hpf Urine Mucus (FEW) /hpf Mycoplasma pneumon IgM Negative (NEGATIVE) 07/01/17 07/02/17 07/02/17 Range/Units 23:50 05:50 05:50 WBC 15.94 H (4.23-9.07) K/mm3 RBC 3.79 L (4.63-6.08) M/mm3 Hgb 12.1 L (13.7-17.5) gm/L Hct 35.6 L (40.1-51.0) % MCV 93.9 H (79.0-92.2) fl MCH 31.9 (25.7-32.2) pg MCHC 34.0 (32.2-35.5) g/dl RDW Std Deviation 45.6 H (35.1-43.9) fL Plt Count 174 (163-337) K/mm3 MPV 10.6 (9.4-12.3) fl Neutrophils % (Manual) (40-60) % Band Neutrophils % (0-10) % Lymphocytes % (Manual) (20-40) % Atypical Lymphs % % Monocytes % (Manual) (2-10) % Eosinophils % (Manual) (0.8-7.0) % Basophils % (Manual) (0.2-1.2) Platelet Estimate Plt Morphology Comment Anisocytosis RBC Morph Comment PT (8.0-13.0) SECONDS INR Puncture Site ABG pH (7.35-7.45) ABG pCO2 (35.0-45.0) mmHg ABG pO2 (80.0-100.0) mmHg ABG HCO3 (22.0-26.0) meq/L ABG O2 Saturation (96.0-97.0) % ABG Base Excess (-2-2.0) Randolph Test O2 Delivery Device Oxygen Flow Rate FiO2 (21.00-100.00) % Sodium 139 (136-145) mEq/L Potassium 4.4 (3.5-5.1) mEq/L Chloride 104 (98-107) mEq/L Carbon Dioxide 25 (21-32) mEq/L Anion Gap 14.4 (5-15) BUN 16 (7-18) mg/dL Creatinine 0.9 (0.7-1.3) mg/dL Est Cr Clr Drug Dosing 65.53 Estimated GFR (MDRD) > 60 (>60) mL/min BUN/Creatinine Ratio 17.8 (14-18) Glucose 184 H (83-115) mg/dL POC Glucose (83-110) mg/dL Calcium 8.8 (8.5-10.1) mg/dL Magnesium 1.8 (1.8-2.4) mg/dl Total Bilirubin (0.2-1.0) mg/dL AST (15-37) U/L ALT (16-63) U/L Alkaline Phosphatase (46-116) U/L CK-MB (CK-2) (0-3.6) ng/ml Troponin I (0.00-0.056) ng/mL C-Reactive Protein 16.9 H* (<1.0) mg/dL NT-Pro-B Natriuret Pep (0-450) pg/mL Total Protein (6.4-8.2) g/dl Albumin (3.4-5.0) g/dl Globulin gm/dL Albumin/Globulin Ratio (1-2) Urine Color Yellow (Yellow) Urine Appearance Clear (Clear) Urine pH 5.5 (5.0-8.0) Ur Specific Amelia 1.025 (1.005-1.030) Urine Protein Negative (Negative) Urine Glucose (UA) Negative (Negative) Urine Ketones Negative (Negative) Urine Occult Blood Negative (Negative) Urine Nitrite Negative (Negative) Urine Bilirubin Negative (Negative) Urine Urobilinogen 0.2 (0.2-1.0) Ur Leukocyte Esterase Negative (Negative) Urine RBC 0-5 (0-5) /hpf Urine WBC 0-5 (0-5) /hpf Ur Epithelial Cells 0-5 (0-5) /hpf Ur Squamous Epith Cells 0-5 (0-5) /hpf Urine Bacteria Not seen (FEW) /hpf Urine Mucus Not seen (FEW) /hpf Mycoplasma pneumon IgM (NEGATIVE) 07/02/17 Range/Units 06:29 WBC (4.23-9.07) K/mm3 RBC (4.63-6.08) M/mm3 Hgb (13.7-17.5) gm/L Hct (40.1-51.0) % MCV (79.0-92.2) fl MCH (25.7-32.2) pg MCHC (32.2-35.5) g/dl RDW Std Deviation (35.1-43.9) fL Plt Count (163-337) K/mm3 MPV (9.4-12.3) fl Neutrophils % (Manual) (40-60) % Band Neutrophils % (0-10) % Lymphocytes % (Manual) (20-40) % Atypical Lymphs % % Monocytes % (Manual) (2-10) % Eosinophils % (Manual) (0.8-7.0) % Basophils % (Manual) (0.2-1.2) Platelet Estimate Plt Morphology Comment Anisocytosis RBC Morph Comment PT (8.0-13.0) SECONDS INR Puncture Site ABG pH (7.35-7.45) ABG pCO2 (35.0-45.0) mmHg ABG pO2 (80.0-100.0) mmHg ABG HCO3 (22.0-26.0) meq/L ABG O2 Saturation (96.0-97.0) % ABG Base Excess (-2-2.0) Randolph Test O2 Delivery Device Oxygen Flow Rate FiO2 (21.00-100.00) % Sodium (136-145) mEq/L Potassium (3.5-5.1) mEq/L Chloride (98-107) mEq/L Carbon Dioxide (21-32) mEq/L Anion Gap (5-15) BUN (7-18) mg/dL Creatinine (0.7-1.3) mg/dL Est Cr Clr Drug Dosing Estimated GFR (MDRD) (>60) mL/min BUN/Creatinine Ratio (14-18) Glucose (83-115) mg/dL POC Glucose 185 H (83-110) mg/dL Calcium (8.5-10.1) mg/dL Magnesium (1.8-2.4) mg/dl Total Bilirubin (0.2-1.0) mg/dL AST (15-37) U/L ALT (16-63) U/L Alkaline Phosphatase (46-116) U/L CK-MB (CK-2) (0-3.6) ng/ml Troponin I (0.00-0.056) ng/mL C-Reactive Protein (<1.0) mg/dL NT-Pro-B Natriuret Pep (0-450) pg/mL Total Protein (6.4-8.2) g/dl Albumin (3.4-5.0) g/dl Globulin gm/dL Albumin/Globulin Ratio (1-2) Urine Color (Yellow) Urine Appearance (Clear) Urine pH (5.0-8.0) Ur Specific Amelia (1.005-1.030) Urine Protein (Negative) Urine Glucose (UA) (Negative) Urine Ketones (Negative) Urine Occult Blood (Negative) Urine Nitrite (Negative) Urine Bilirubin (Negative) Urine Urobilinogen (0.2-1.0) Ur Leukocyte Esterase (Negative) Urine RBC (0-5) /hpf Urine WBC (0-5) /hpf Ur Epithelial Cells (0-5) /hpf Ur Squamous Epith Cells (0-5) /hpf Urine Bacteria (FEW) /hpf Urine Mucus (FEW) /hpf Mycoplasma pneumon IgM (NEGATIVE) Arnold Results Last 24 Hours: Microbiology 07/01/17 20:10 Influenza Type A Antigen Screen - Final Nasal Aspirate, Unspecified NEGATIVE INFLUENZA A VIRUS AG Influenza Type B Antigen Screen - Final NEGATIVE INFLUENZA B VIRUS AG Med Orders - Current: Current Medications Acetaminophen (Tylenol) 650 mg PO Q4H PRN PRN Reason: Pain (Mild 1-3)/fever Hydrocodone Bitart/Acetaminophen ([place] 325-5 Mg) 1 tab PO Q4H PRN PRN Reason: Pain (moderate 4-6) Albuterol/Ipratropium (Duoneb 3.0-0.5 Mg/3 Ml) 3 ml NEB Q4HRRT PRN PRN Reason: Wheezing Last Admin: 07/02/17 00:56 Dose: 3 ml Aspirin (Halfprin) 81 mg PO DAILY IVA Bisacodyl (Dulcolax) 5 mg PO DAILY PRN PRN Reason: Constipation Budesonide (Pulmicort) 0.5 mg INH DAILY IVA Calcium Carbonate (Calcium Carbonate/Vitamin D 600 Mg-200 Unit) 1 tab PO DAILY IVA Cyanocobalamin (Vitamin B12) 1,000 mcg PO DAILY IVA Dextrose/Water (Dextrose 50% In Water) 50 ml IVPUSH ASDIRECTED PRN PRN Reason: Hypoglycemia Docusate Sodium (Colace) 100 mg PO DAILY PRN PRN Reason: Constipation Enoxaparin Sodium (Lovenox) 30 mg SUBCUT DAILY [facility] Fish Oil (Fish Oil) 1 gm PO DAILY [facility] Guaifenesin (Mucinex) 600 mg PO BID [facility] Last Admin: 07/01/17 23:56 Dose: 600 mg Guaifenesin/Phenylephrine HCl (Robitussin Dm) 10 ml PO Q4H PRN PRN Reason: Cough Hydralazine HCl (Apresoline) 10 mg IVPUSH Q4H PRN PRN Reason: Hypertension Hydromorphone HCl (Dilaudid) 0.25 mg IVPUSH Q2H PRN PRN Reason: Pain (severe 7-10) Promethazine HCl 6.25 mg/ (Sodium Chloride) 50.25 mls @ 100 mls/hr IV Q6H PRN PRN Reason: Nausea/Vomiting Levofloxacin/Dextrose 750 mg/ (Premix) 150 mls @ 100 mls/hr IV Q24H [facility] Sodium Chloride (Normal Saline) 1,000 mls @ 75 mls/hr IV ASDIRECTED [facility] Last Admin: 07/02/17 06:16 Dose: 75 mls/hr Insulin Aspart (Novolog) 0 unit SUBCUT QIDACANDBED [facility]; Protocol Lorazepam (Ativan) 2 mg IVPUSH Q4H PRN PRN Reason: Seizures Lorazepam (Ativan) 0.5 mg IV Q6H PRN PRN Reason: Anxiety Magnesium Oxide (Magnesium Oxide) 400 mg PO BID [facility] Magnesium Sulfate (Pharmacy To Dose - Magnesium Replacement) 1 dose .XX ASDIRECTED [facility] Methylprednisolone Sodium Succinate (Solu-Medrol) 60 mg IVPUSH Q6H [facility] Last Admin: 07/02/17 06:16 Dose: 60 mg Metoprolol Tartrate (Lopressor) 5 mg IVPUSH Q4H PRN PRN Reason: Tachycardia Non-Formulary Medication (Formoterol [Perforomist]) 20 mcg INH BID [facility] Ondansetron HCl (Zofran) 4 mg IV Q6H PRN PRN Reason: Nausea/Vomiting Polyethylene Glycol (Miralax) 17 gm PO DAILY PRN PRN Reason: Constipation Potassium Chloride (Pharmacy To Dose - Potassium Replacement) 1 dose .XX ASDIRECTED [facility] Temazepam (Restoril) 7.5 mg PO BEDTIME PRN PRN Reason: Sleep Discontinued Medications Acetaminophen (Tylenol) 650 mg PO NOW ONE Stop: 07/01/17 20:00 Last Admin: 07/01/17 20:07 Dose: 650 mg Albuterol/Ipratropium (Duoneb 3.0-0.5 Mg/3 Ml) 3 ml NEB ONETIME ONE Stop: 07/01/17 20:00 Last Admin: 07/01/17 20:09 Dose: 3 ml Sodium Chloride (Normal Saline) 1,000 mls @ 100 mls/hr IV ASDIRECTED [facility] Last Admin: 07/01/17 20:05 Dose: 100 mls/hr Levofloxacin/Dextrose 750 mg/ (Premix) 150 mls @ 100 mls/hr IV ONETIME ONE Stop: 07/01/17 22:11 Last Admin: 07/01/17 20:49 Dose: 100 mls/hr Magnesium Sulfate/Dextrose 1 (gm/ Premix) 100 mls @ 100 mls/hr IV ONETIME ONE Stop: 07/01/17 22:59 Last Admin: 07/01/17 23:56 Dose: 100 mls/hr Methylprednisolone Sodium Succinate (Solu-Medrol) 125 mg IVPUSH ONETIME ONE Stop: 07/01/17 23:01 Last Admin: 07/01/17 23:56 Dose: 125 mg - Exam Quality Assessment: Supplemental Oxygen General: Alert, Oriented, Cooperative, No Acute Distress HEENT: Pupils Equal, Pupils Reactive, EOMI, Mucous Membr. Moist/[place] Neck: Supple, Trachea Midline, No JVD, No Thyromegaly Lungs: Normal Respiratory Effort, Decreased Breath Sounds Cardiovascular: Regular Rate, Regular Rhythm GI/Abdominal Exam: Normal Bowel Sounds, Soft, Non-Tender, No Organomegaly, No Distention, No Abnormal Bruit, No Mass (Male) Exam: Deferred Back Exam: Normal Inspection, Decreased Range of Motion Extremities: Normal Inspection, Normal Range of Motion, Non-Tender, No Pedal Edema, Normal Capillary Refill, Other (right lower extremity leg brace) Peripheral Pulses: 2+: Dorsalis Pedis (L), Dorsalis Pedis (R) Skin: Warm, Dry, Intact Neurological: No New Focal Deficit Psy/Mental Status: Alert, Normal Affect, Normal Mood - Problem List Review Problem List Initiated/Reviewed/Updated: Yes - My Orders Last 24 Hours: My Active Orders 07/01/17 21:00 guaiFENesin [Mucinex] 600 mg PO BID 07/01/17 21:30 Docusate Sodium [Colace] 100 mg PO DAILY PRN 07/01/17 21:34 LORazepam [Ativan] 2 mg IVPUSH Q4H PRN Metoprolol Tartrate [Lopressor] 5 mg IVPUSH Q4H PRN hydrALAZINE [Apresoline] 10 mg IVPUSH Q4H PRN 07/01/17 21:36 Height and Weight [RC] DAILY Oxygen Therapy [RC] PRN Up With Assistance [RC] ASDIRECTED Up ad Brandie [RC] ASDIRECTED VTE/DVT Education [RC] DAILY Vital Signs [RC] Q4HR Acetaminophen [Tylenol] 650 mg PO Q4H PRN Acetaminophen/HYDROcodone [[place] 325-5 MG] 1 tab PO Q4H PRN Bisacodyl [Dulcolax] 5 mg PO DAILY PRN HYDROmorphone [Dilaudid] 0.25 mg IVPUSH Q2H PRN LORazepam [Ativan] 0.5 mg IV Q6H PRN Ondansetron [Zofran] 4 mg IV Q6H PRN Polyethylene Glycol 3350 [MiraLAX] 17 gm PO DAILY PRN Promethazine [Phenergan] 6.25 mg Sodium Chloride 0.9% [Normal Saline] 50 ml IV Q6H Temazepam [Restoril] 7.5 mg PO BEDTIME PRN Resuscitation Status Routine 07/01/17 21:39 Intake and Output [RC] 04,16 Pulse Oximetry [RC] PRN 07/01/17 21:45 Consult to Spiritual Care [CONS] Routine OT Evaluation and Treatment [CONS] Routine PT Evaluation and Treatment [CONS] Routine Respiratory Care Assess and Treatment [CONS] Routine CULTURE SPUTUM + SMEAR [RM] Stat Magnesium Rep Pharmacy to Dose [Pharmacy to Dose - Magnesium Replacement] 1 dose .XX ASDIRECTED Potassium Rep Pharmacy to Dose [Pharmacy to Dose - Potassium Replacement] 1 dose .XX ASDIRECTED 07/01/17 21:54 Incentive Spirometry [RT Incentive Spirometry] [RC] ASDIRECTED 07/01/17 21:55 Flutter Valve Therapy [RT Chest Physiotherapy] [RC] ASDIRECTED Dextromethorphan/guaiFENesin [Robitussin DM] 10 ml PO Q4H PRN 07/01/17 22:47 Albuterol/Ipratropium [DuoNeb 3.0-0.5 MG/3 ML] 3 ml NEB Q4HRRT PRN 07/01/17 22:50 Consult to Speech Language Pathology [IT ASSISTANT Evaluation and Treatment] [CONS] Routine 07/01/17 22:54 Blood Glucose Check, Bedside [RC] QIDACANDBED Dextrose 50% in Water 50 ml IVPUSH ASDIRECTED PRN 07/01/17 23:50 CULTURE URINE [RM] Stat RESPIRATORY PANEL BY PCR [MREF] Stat STREP PNEUMONIAE ANTIGEN [MREF] Stat 07/01/17 Dinner Regular Diet [DIET] 07/02/17 00:15 Sodium Chloride 0.9% [Normal Saline] 1,000 ml IV ASDIRECTED 07/02/17 06:00 methylPREDNISolone Sod Succ [Solu-MEDROL] 60 mg IVPUSH Q6H 07/02/17 07:00 Insulin Aspart [NovoLOG] See Protocol SUBCUT QIDACANDBED 07/02/17 09:00 Aspirin [Halfprin] 81 mg PO DAILY Budesonide [Pulmicort] 0.5 mg INH DAILY Calcium Carbonate/Vitamin D3 [Calcium Carbonate/Vitamin D 600 MG-200 Unit] 1 tab PO DAILY Cyanocobalamin (Vitamin B12) [Vitamin B12] 1,000 mcg PO DAILY Enoxaparin [Lovenox] 30 mg SUBCUT DAILY Fish Oil/Dalbo-3 Fatty Acids [Fish Oil] 1 gm PO DAILY Formoterol [Perforomist] 20 mcg INH BID Magnesium Oxide 400 mg PO BID 07/02/17 21:00 Levofloxacin/Dextrose 5%-Water [Levaquin in D5W 750 MG/150 ML] 750 mg Premix Bag 1 bag IV Q24H 07/03/17 05:11 Chest 1V Frontal [CR] AM BASIC METABOLIC PANEL,BMP [CHEM] AM C-REACTIVE PROTEIN [CHEM] AM CBC W/O DIFF,HEMOGRAM [HEME] AM MAGNESIUM [CHEM] AM 07/04/17 05:11 BASIC METABOLIC PANEL,BMP [CHEM] AM C-REACTIVE PROTEIN [CHEM] AM CBC W/O DIFF,HEMOGRAM [HEME] AM MAGNESIUM [CHEM] AM 07/05/17 05:11 BASIC METABOLIC PANEL,BMP [CHEM] AM C-REACTIVE PROTEIN [CHEM] AM CBC W/O DIFF,HEMOGRAM [HEME] AM MAGNESIUM [CHEM] AM 07/06/17 05:11 BASIC METABOLIC PANEL,BMP [CHEM] AM C-REACTIVE PROTEIN [CHEM] AM CBC W/O DIFF,HEMOGRAM [HEME] AM MAGNESIUM [CHEM] AM 07/07/17 05:11 BASIC METABOLIC PANEL,BMP [CHEM] AM C-REACTIVE PROTEIN [CHEM] AM CBC W/O DIFF,HEMOGRAM [HEME] AM MAGNESIUM [CHEM] AM - Plan Plan:: Assessment/Plan: Acute: CAP vs Aspiration Syndrome - Risk Factors: COPD, Dysarthria, Chronic Hypoxia on 2L NC, and Pyrosis/ Reflux Disease - CURB 65 score is 4: meets criteria for inpatient with possible ICU admission - CXR shows right upper lobe infiltrate - He is now on 3L NC - IV Levaquin, Bronchodilators, Decongestant/Expectorant, RT Care and Supplemental O2 - FV/IS as directed - Mycoplasma Pneumonia Ag and Screening Influenza- both negative - Strep pneumonia ag, Sputum Culture, Respiratory Panel, and Blood Cultures - Serial CXR as indicated - IT ASSISTANT eval pending COPD Exacerbation, Improved - Advanced - IV Solumedrol and Smooth Muscle Relaxants - Additional treatment as above Leukocytosis, Improved - 2/2 Above - WBC 18K--> 15K and CRP 11--> 16.9 - Monitor Resolved: S/p Hypomagnesemia - Mg 1.7--> 1.8 - 2/2 poor intake and respiratory insufficiency - Replete and monitor S/p Acute Respiratory Failure, Hypoxic - Acute on chronic - 2/2 CAP and COPD - Has baseline pulmonary Insufficiency - O2 dependent on 2L NC--> 6L NC--> now on 3L NC - NIPPV if needed Chronic: HTN Hx/o CVA GERD Hx/o Lip Cancer Gait Instability Plan: He is doing better clinically Continue current treatment Routine AM Labs Aspiration and Fall Precautions RT/PT/OT consult SW/CM for d/c planning Ambulated as tolerated TID Code status: 1
--- NOTE | 2017-07-02 08:30 | CR ---
Chest: Portable view of the chest was obtained. Comparison: Prior chest x-ray of 12/10/10. Parenchymal density is noted within the right upper lung. This appears more mass-like than on previous chest x-ray. Chronic parenchymal change is noted within the left base. Lungs otherwise are clear. Heart size is normal. Tortuous thoracic aorta is noted. Bony structures are osteopenic. Scoliosis is noted within the spine. Impression: 1. Parenchymal density appearing more mass-like than on prior study within the upper right lung. Please correlate if patient has any symptoms to suggest pneumonia as an etiology. Follow-up chest x-ray recommended several weeks after clinical therapy is complete to make sure findings resolve. 2. Chronic parenchymal changes are seen. Other incidental findings. Diagnostic code #3
[2017-07-02] MEDS: Budesonide 0.5 MG/2 ML Neb Susp INH SCH (08:43)
[2017-07-02] MEDS: Insulin Aspart 100 Units/ML 3 ML Pen SUBCUT SCH ×4 (09:09→22:11)
[2017-07-02] MEDS: Calcium Carbonate/Vitamin D3 600 MG-200 Units Tab PO SCH (09:11)
[2017-07-02] MEDS: Cyanocobalamin (Vitamin B12) 1,000 MCG Tab PO SCH (09:11)
[2017-07-02] MEDS: Enoxaparin 40 MG/0.4 ML Syringe SUBCUT SCH (09:11)
[2017-07-02] MEDS: Aspirin 81 MG Tab.EC PO SCH (09:11)
[2017-07-02] MEDS: Fish Oil/Omega-3 Fatty Acids 1 Gm Cap PO SCH ×2 (09:11→09:13)
[2017-07-02] MEDS: guaiFENesin 600 MG Tab.ER PO SCH ×2 (09:11→21:42)
[2017-07-02] MEDS: Magnesium Oxide 400 MG Tab PO SCH ×2 (09:11→21:43)
[2017-07-02] MEDS: FORMOTEROL 20 MCG INH SCH ×2 (09:34→20:28)
[2017-07-02] MEDS: Metoprolol Tartrate 5 MG/5 ML SDV IVPUSH PRN ×2 (16:26→21:45)
[2017-07-02] MEDS ORDERED: Levofloxacin/Dextrose 5%-Water 750 MG in Premix Bag 1 BAG IV SCH (21:00)
[2017-07-02] MEDS ORDERED: Levofloxacin/Dextrose 5%-Water 150 ML IV ONE (21:29)
[2017-07-03] MEDS: methylPREDNISolone Sodium Succinate 40 MG/1 ML SDV IVPUSH SCH ×2 (00:10→06:27)
[2017-07-03] MEDS ORDERED: Ascorbic Acid 500 MG Tab PO PRN (07:04)
[2017-07-03] MEDS ORDERED: Vitamin E (dl-alpha-tocopherol acetate) 400 Unit Cap PO SCH (07:15)
[2017-07-03] MEDS ORDERED: Magnesium Oxide 400 MG Tab PO ONE (07:30)
[2017-07-03] MEDS: FORMOTEROL 20 MCG INH SCH ×2 (08:01→21:14)
[2017-07-03] MEDS: Albuterol/Ipratropium 3.0-0.5 MG/3 ML Neb Soln NEB PRN (08:01)
[2017-07-03] MEDS: Budesonide 0.5 MG/2 ML Neb Susp INH SCH (08:01)
[2017-07-03] MEDS: Tiotropium Inhaler 18 MCG Inhalation Powder Cap Kit of 5 INH SCH (08:01)
[2017-07-03] MEDS: Cyanocobalamin (Vitamin B12) 1,000 MCG Tab PO SCH (08:55)
[2017-07-03] MEDS: Calcium Carbonate/Vitamin D3 600 MG-200 Units Tab PO SCH (08:55)
[2017-07-03] MEDS: Multivitamins,Therapeutic Tab PO SCH (08:55)
[2017-07-03] MEDS: Magnesium Oxide 400 MG Tab PO SCH ×2 (08:55→20:19)
[2017-07-03] MEDS: Aspirin 81 MG Tab.EC PO SCH (08:56)
[2017-07-03] MEDS: Pantoprazole 40 MG Tab.CR PO SCH (08:56)
[2017-07-03] MEDS: Lisinopril 10 MG Tab PO SCH (08:57)
[2017-07-03] MEDS: guaiFENesin 600 MG Tab.ER PO SCH ×2 (08:59→20:19)
[2017-07-03] MEDS: Fish Oil/Omega-3 Fatty Acids 1 Gm Cap PO SCH (08:59)
[2017-07-03] MEDS: Enoxaparin 40 MG/0.4 ML Syringe SUBCUT SCH (09:00)
[2017-07-03] MEDS: Insulin Aspart 100 Units/ML 3 ML Pen SUBCUT SCH ×2 (09:04→11:46)
--- NOTE | 2017-07-03 09:06 | CR ---
Chest: Frontal view of the chest is obtained. Comparison: Prior chest x-ray of 07/01/17 and chest x-ray of 12/10/10. Continuing parenchymal density is noted within the right upper lung. Findings felt to be fairly stable from previous exam. Lucency is identified within both lung bases which is felt compatible with bullous change. Nodules are identified within the left perihilar region and mediastinum compatible with calcified lymph nodes. Heart size is normal. Bony structures are osteopenic. Impression: 1. Prominent emphysematous change within both lung bases. 2. Continuing parenchymal density within the upper right lung which appears similar to most recent study. 3. Nothing acute is otherwise seen. Diagnostic code #3
[2017-07-03] MEDS: Sodium Chloride 0.9% 1,000 ML IV SCH ×2 (09:53→18:07)
[2017-07-03] MEDS ORDERED: Sodium Chloride 0.9% 250 ML IV SCH (10:40)
[2017-07-03] MEDS ORDERED: Iopamidol 612 MG/ML 100 ML Bottle IVPUSH ONE (10:47)
[2017-07-03] MEDS ORDERED: Sodium Chloride 0.9% 10 ML Syringe FLUSH PRN (10:47)
--- NOTE | 2017-07-03 12:26 | PCM.PN ---
<Veronica Khan - Last Filed: 07/03/17 13:31> - General Info Date of Service: 07/03/17 Admission Dx/Problem (Free Text): Admission Diagnosis/Problem Admission Diagnosis/Problem Pneumonia Subjective Update: In to see Ayan today. He is sitting in a chair visiting with family. Overall he is doing well. He has no complaints. He has been sleeping well. Good appetite. Ambulating. Pain is controlled. No Fever, chills, nausea, vomiting, diarrhea. Urinating. Incentive Spirometry. Per nursing, he has been feeling more short of breath- will schedule nebulizing treatments from as needed to twice per day. No other concerns from nursing. Functional Status: Reports: Pain Controlled, Tolerating Diet, Ambulating, Urinating, Incentive Spirometry - Review of Systems General: Denies: Fever, Weakness, Fatigue, Malaise, Chills HEENT: Reports: No Symptoms Pulmonary: Denies: Shortness of Breath, Cough, Sputum Cardiovascular: Denies: Chest Pain, Palpitations, Dyspnea on Exertion Gastrointestinal: Denies: Abdominal Pain, Diarrhea, Nausea, Vomiting Genitourinary: Reports: No Symptoms Musculoskeletal: Reports: No Symptoms Skin: Reports: No Symptoms Neurological: Reports: Trouble Speaking (baseline dysarthia, h/o CVA), Weakness , Gait Disturbance. Denies: Confusion, Difficulty Walking Psychiatric: Reports: No Symptoms - Patient Data Vitals - Most Recent: Last Vital Signs Temp 98.0 F 07/03/17 11:16 Pulse 93 07/03/17 11:01 Resp 24 H 07/03/17 11:01 BP 107/56 L 07/03/17 11:01 Pulse Ox 95 07/03/17 11:01 Weight - Most Recent: 66.179 kg I&O - Last 24 Hours: Intake & Output 07/02/17 07/03/17 07/03/17 22:59 06:59 14:59 Intake Total 2289 1491 Output Total 1200 825 Balance 1085 666 Lab Results Last 24 Hours: Laboratory Results - last 24 hr 07/02/17 07/02/17 07/03/17 Range/Units 17:17 21:49 05:55 WBC 20.94 H (4.23-9.07) K/mm3 RBC 3.67 L (4.63-6.08) M/mm3 Hgb 11.7 L (13.7-17.5) gm/L Hct 34.5 L (40.1-51.0) % MCV 94.0 H (79.0-92.2) fl MCH 31.9 (25.7-32.2) pg MCHC 33.9 (32.2-35.5) g/dl RDW Std Deviation 47.0 H (35.1-43.9) fL Plt Count 180 (163-337) K/mm3 MPV 10.6 (9.4-12.3) fl Sodium (136-145) mEq/L Potassium (3.5-5.1) mEq/L Chloride (98-107) mEq/L Carbon Dioxide (21-32) mEq/L Anion Gap (5-15) BUN (7-18) mg/dL Creatinine (0.7-1.3) mg/dL Est Cr Clr Drug Dosing mL/min Estimated GFR (MDRD) (>60) mL/min BUN/Creatinine Ratio (14-18) Glucose (83-115) mg/dL POC Glucose 281 H 216 H (83-110) mg/dL Calcium (8.5-10.1) mg/dL Magnesium (1.8-2.4) mg/dl C-Reactive Protein (<1.0) mg/dL 07/03/17 07/03/17 07/03/17 Range/Units 05:55 06:37 11:35 WBC (4.23-9.07) K/mm3 RBC (4.63-6.08) M/mm3 Hgb (13.7-17.5) gm/L Hct (40.1-51.0) % MCV (79.0-92.2) fl MCH (25.7-32.2) pg MCHC (32.2-35.5) g/dl RDW Std Deviation (35.1-43.9) fL Plt Count (163-337) K/mm3 MPV (9.4-12.3) fl Sodium 143 (136-145) mEq/L Potassium 4.2 (3.5-5.1) mEq/L Chloride 109 H (98-107) mEq/L Carbon Dioxide 24 (21-32) mEq/L Anion Gap 14.2 (5-15) BUN 17 (7-18) mg/dL Creatinine 0.9 (0.7-1.3) mg/dL Est Cr Clr Drug Dosing 63.32 mL/min Estimated GFR (MDRD) > 60 (>60) mL/min BUN/Creatinine Ratio 18.9 H (14-18) Glucose 156 H (83-115) mg/dL POC Glucose 148 H 142 H (83-110) mg/dL Calcium 8.3 L (8.5-10.1) mg/dL Magnesium 1.7 L (1.8-2.4) mg/dl C-Reactive Protein 9.3 H* (<1.0) mg/dL Arnold Results Last 24 Hours: Microbiology 07/01/17 23:50 Urine Culture - Preliminary Urine, Clean Catch NO GROWTH AFTER 1 DAY 07/01/17 23:50 Respiratory Virus Panel (PCR) - Final Nasopharyngeal Swab 07/01/17 23:50 Streptococcus pneumoniae Antigen (M - Final Urine 07/01/17 20:30 Aerobic Blood Culture - Preliminary Blood - Venous - Lab Draw NO GROWTH AFTER 1 DAY Anaerobic Blood Culture - Preliminary NO GROWTH AFTER 1 DAY 07/01/17 20:03 Aerobic Blood Culture - Preliminary Blood - Venous NO GROWTH AFTER 1 DAY Anaerobic Blood Culture - Preliminary NO GROWTH AFTER 1 DAY Med Orders - Current: Current Medications Acetaminophen (Tylenol) 650 mg PO Q4H PRN PRN Reason: Pain (Mild 1-3)/fever Hydrocodone Bitart/Acetaminophen ([place] 325-5 Mg) 1 tab PO Q4H PRN PRN Reason: Pain (moderate 4-6) Albuterol/Ipratropium (Duoneb 3.0-0.5 Mg/3 Ml) 3 ml NEB Q4HRRT PRN PRN Reason: Wheezing Last Admin: 07/03/17 08:01 Dose: 3 ml Ascorbic Acid (Vitamin C) 500 mg PO DAILY PRN PRN Reason: PATIENT TAKES WHEN HE WANTS IT Last Admin: 07/03/17 08:56 Dose: 500 mg Aspirin (Halfprin) 81 mg PO DAILY [facility] Last Admin: 07/03/17 08:56 Dose: 81 mg Bisacodyl (Dulcolax) 5 mg PO DAILY PRN PRN Reason: Constipation Budesonide (Pulmicort) 0.5 mg INH DAILY [facility] Last Admin: 07/03/17 08:01 Dose: 0.5 mg Calcium Carbonate (Calcium Carbonate/Vitamin D 600 Mg-200 Unit) 1 tab PO DAILY [facility] Last Admin: 07/03/17 08:55 Dose: 1 tab Cyanocobalamin (Vitamin B12) 1,000 mcg PO DAILY [facility] Last Admin: 07/03/17 08:55 Dose: 1,000 mcg Dextrose/Water (Dextrose 50% In Water) 50 ml IVPUSH ASDIRECTED PRN PRN Reason: Hypoglycemia Docusate Sodium (Colace) 100 mg PO DAILY PRN PRN Reason: Constipation Enoxaparin Sodium (Lovenox) 40 mg SUBCUT DAILY [facility] Last Admin: 07/03/17 09:00 Dose: 40 mg Fish Oil (Fish Oil) 1 gm PO DAILY [facility] Last Admin: 07/03/17 08:59 Dose: 1 gm Guaifenesin (Mucinex) 600 mg PO BID [facility] Last Admin: 07/03/17 08:59 Dose: 600 mg Guaifenesin/Phenylephrine HCl (Robitussin Dm) 10 ml PO Q4H PRN PRN Reason: Cough Hydralazine HCl (Apresoline) 10 mg IVPUSH Q4H PRN PRN Reason: Hypertension Hydromorphone HCl (Dilaudid) 0.25 mg IVPUSH Q2H PRN PRN Reason: Pain (severe 7-10) Promethazine HCl 6.25 mg/ (Sodium Chloride) 50.25 mls @ 100 mls/hr IV Q6H PRN PRN Reason: Nausea/Vomiting Sodium Chloride (Normal Saline) 1,000 mls @ 75 mls/hr IV ASDIRECTED [facility] Last Admin: 07/03/17 09:53 Dose: 75 mls/hr Sodium Chloride (Normal Saline) 250 mls @ 999 mls/hr IV .BOLUS [facility] Stop: 07/03/17 16:00 Last Admin: 07/03/17 11:09 Dose: 999 mls/hr Insulin Aspart (Novolog) 0 unit SUBCUT QIDACANDBED [facility]; Protocol Last Admin: 07/03/17 11:46 Dose: Not Given Levofloxacin (Levaquin) 750 mg PO Q24H [facility] Lisinopril (Prinivil) 10 mg PO DAILY [facility] Last Admin: 07/03/17 08:57 Dose: 10 mg Lorazepam (Ativan) 2 mg IVPUSH Q4H PRN PRN Reason: Seizures Lorazepam (Ativan) 0.5 mg IV Q6H PRN PRN Reason: Anxiety Magnesium Oxide (Magnesium Oxide) 400 mg PO BID [facility] Last Admin: 07/03/17 08:55 Dose: 400 mg Magnesium Sulfate (Pharmacy To Dose - Magnesium Replacement) 1 dose .XX ASDIRECTED [facility] Metoprolol Tartrate (Lopressor) 5 mg IVPUSH Q4H PRN PRN Reason: Tachycardia Last Admin: 07/02/17 21:45 Dose: 5 mg Multivitamins (Thera) 1 each PO DAILY [facility] Last Admin: 07/03/17 08:55 Dose: 1 each Ondansetron HCl (Zofran) 4 mg IV Q6H PRN PRN Reason: Nausea/Vomiting Pantoprazole Sodium (Protonix) 40 mg PO DAILY@0700 [facility] Last Admin: 07/03/17 08:56 Dose: 40 mg Formoterol [ (Perforomist] 20 Mcg) 0 each INH BID [facility] Last Admin: 07/03/17 08:01 Dose: 1 each Polyethylene Glycol (Miralax) 17 gm PO DAILY PRN PRN Reason: Constipation Potassium Chloride (Pharmacy To Dose - Potassium Replacement) 1 dose .XX ASDIRECTED [facility] Temazepam (Restoril) 7.5 mg PO BEDTIME PRN PRN Reason: Sleep Tiotropium [place] (Spiriva Handihaler) 18 mcg INH DAILY [facility] Last Admin: 07/03/17 08:01 Dose: 1 cap Vitamin E (Vitamin E) 400 units PO ASDIRECTED [facility] Discontinued Medications Acetaminophen (Tylenol) 650 mg PO NOW ONE Stop: 07/01/17 20:00 Last Admin: 07/01/17 20:07 Dose: 650 mg Albuterol/Ipratropium (Duoneb 3.0-0.5 Mg/3 Ml) 3 ml NEB ONETIME ONE Stop: 07/01/17 20:00 Last Admin: 07/01/17 20:09 Dose: 3 ml Sodium Chloride (Normal Saline) 1,000 mls @ 100 mls/hr IV ASDIRECTED [facility] Last Admin: 07/01/17 20:05 Dose: 100 mls/hr Levofloxacin/Dextrose 750 mg/ (Premix) 150 mls @ 100 mls/hr IV ONETIME ONE Stop: 07/01/17 22:11 Last Admin: 07/01/17 20:49 Dose: 100 mls/hr Magnesium Sulfate/Dextrose 1 (gm/ Premix) 100 mls @ 100 mls/hr IV ONETIME ONE Stop: 07/01/17 22:59 Last Admin: 07/01/17 23:56 Dose: 100 mls/hr Levofloxacin/Dextrose 750 mg/ (Premix) 150 mls @ 100 mls/hr IV Q24H [facility] Last Admin: 07/02/17 21:42 Dose: 100 mls/hr Levofloxacin/Dextrose (Levaquin In D5w 750 Mg/150 Ml) Confirm Administered Dose 150 mls @ as directed IV .STK-MED ONE Stop: 07/02/17 21:30 Last Admin: 07/02/17 22:23 Dose: Not Given Iopamidol (Isovue-300 (61%)) 80 ml IVPUSH ONETIME ONE Stop: 07/03/17 10:48 Last Admin: 07/03/17 11:45 Dose: 80 ml Magnesium Oxide (Magnesium Oxide) 800 mg PO ONETIME ONE Stop: 07/03/17 07:31 Last Admin: 07/03/17 08:56 Dose: 800 mg Methylprednisolone Sodium Succinate (Solu-Medrol) 125 mg IVPUSH ONETIME ONE Stop: 07/01/17 23:01 Last Admin: 07/01/17 23:56 Dose: 125 mg Methylprednisolone Sodium Succinate (Solu-Medrol) 60 mg IVPUSH Q6H [facility] Last Admin: 07/03/17 06:27 Dose: 60 mg Sodium Chloride (Saline Flush) 10 ml FLUSH ONETIME PRN PRN Reason: IV FLUSH Stop: 07/03/17 12:00 Last Admin: 07/03/17 11:46 Dose: 10 ml - Exam Quality Assessment: Supplemental Oxygen (3L nasal cannula), DVT Prophylaxis General: Alert, Oriented, Cooperative, No Acute Distress HEENT: Pupils Equal, Pupils Reactive, EOMI, Mucous Membr. Moist/[place] Neck: Supple Lungs: Normal Respiratory Effort, Decreased Breath Sounds Cardiovascular: Regular Rate, Regular Rhythm GI/Abdominal Exam: Normal Bowel Sounds, Soft, Non-Tender, No Distention (Male) Exam: Deferred Back Exam: Normal Inspection, Decreased Range of Motion Extremities: Normal Inspection, Normal Range of Motion, Non-Tender, No Pedal Edema, Other (R lower extremity leg brace) Peripheral Pulses: 2+: Dorsalis Pedis (L), Dorsalis Pedis (R) Skin: Warm, Dry, Intact Neurological: No New Focal Deficit Psy/Mental Status: Alert, Normal Affect, Normal Mood - Problem List & Annotations (1) COPD exacerbation SNOMED Code(s): 726038762 Code(s): J44.1 - CHRONIC OBSTRUCTIVE PULMONARY DISEASE W (ACUTE) EXACERBATION Status: Acute Priority: High Current Visit: Yes (2) Respiratory failure SNOMED Code(s): 716566942 Code(s): J96.90 - RESPIRATORY FAILURE, UNSP, UNSP W HYPOXIA OR HYPERCAPNIA Status: Acute Priority: High Current Visit: Yes Qualifiers: Chronicity: acute on chronic Respiratory failure complication: hypoxia Qualified Code(s): J96.21 - Acute and chronic respiratory failure with hypoxia (3) GERD (gastroesophageal reflux disease) SNOMED Code(s): 758491022 Code(s): K21.9 - GASTRO-ESOPHAGEAL REFLUX DISEASE WITHOUT ESOPHAGITIS Status: Chronic Priority: Low Current Visit: Yes Qualifiers: Esophagitis presence: esophagitis presence not specified Qualified Code(s) : K21.9 - Gastro-esophageal reflux disease without esophagitis (4) HTN (hypertension) SNOMED Code(s): 80570328 Code(s): I10 - ESSENTIAL (PRIMARY) HYPERTENSION Status: Chronic Priority : Medium Current Visit: Yes Qualifiers: Hypertension type: unspecified Qualified Code(s): I10 - Essential (primary ) hypertension (5) History of CVA with residual deficit SNOMED Code(s): 563116320 Code(s): I69.30 - UNSPECIFIED SEQUELAE OF CEREBRAL INFARCTION Status: Chronic Priority: Medium Current Visit: Yes - Problem List Review Problem List Initiated/Reviewed/Updated: Yes - Plan Plan:: Assessment/Plan: Acute: CAP vs Aspiration Syndrome vs Malignancy vs Fibrosis - Risk Factors: COPD, Dysarthria, Chronic Hypoxia on 2L NC, and Pyrosis/ Reflux Disease - CURB 65 score is 4: meets criteria for inpatient with possible ICU admission - CXR 07/01/17 and 07/03/17--> right upper lobe infiltrate - CRP 16.9-->9.3 - He is now on 3L NC - IV Levaquin--> D/C today, start Levoquin 750 PO (07/03/17) - Bronchodilators, Decongestant/Expectorant, RT Care and Supplemental O2 -Increased SOB today--> Increase Duoneb from PRN to BID - FV/IS as directed - Mycoplasma Pneumonia Ag and Screening Influenza--> both negative - Strep pneumonia ag, Sputum Culture, Respiratory Panel, and Blood Cultures-- > all negative - Serial CXR as indicated - [employer]CTION[employer] DIRECTOR eval - CT with angiogram today to r/o malignancy -Per Dr. Arora, showed parenchymal density within the RUL which does not appear mass-like. -Appearance of focal fibrosis with possible superimposed PNA. COPD Exacerbation, Improved - Advanced - IV Solumedrol and Smooth Muscle Relaxants--> D/C Solumedrol today (07/03/17) - Additional treatment as above Leukocytosis, Improved - 2/2 Solumedrol - WBC 18K--> 15K-->20K and CRP 11--> 16.94-->9.3 - Monitor Resolved: S/p Hypomagnesemia - Mg 1.7--> 1.8-->1.7 - 2/2 poor intake and respiratory insufficiency - Replete and monitor S/p Acute Respiratory Failure, Hypoxic - Acute on chronic - 2/2 CAP and COPD - Has baseline pulmonary Insufficiency - O2 dependent on 2L NC--> 6L NC--> now on 3L NC - NIPPV if needed Chronic: HTN Hx/o CVA--> Recommend outpt swallow test GERD Hx/o Lip Cancer Gait Instability Plan: He is doing better clinically Continue current treatment Routine AM Labs Aspiration and Fall Precautions RT/PT/OT consult SW/CM for d/c planning Ambulated as tolerated TID Full code; PCP: Barry Delgado <Alba Staples T - Last Filed: 07/03/17 15:01> - Patient Data Vitals - Most Recent: Last Vital Signs Temp 36.7 C 07/03/17 11:16 Pulse 93 07/03/17 11:01 Resp 24 H 07/03/17 11:01 BP 107/56 L 07/03/17 11:01 Pulse Ox 95 07/03/17 11:01 I&O - Last 24 Hours: Intake & Output 07/02/17 07/03/17 07/03/17 22:59 06:59 14:59 Intake Total 2289 1491 Output Total 5605 825 Balance 1084 666 Lab Results Last 24 Hours: Laboratory Results - last 24 hr 07/02/17 07/02/17 07/03/17 Range/Units 17:17 21:49 05:55 WBC 20.94 H (4.23-9.07) K/mm3 RBC 3.67 L (4.63-6.08) M/mm3 Hgb 11.7 L (13.7-17.5) gm/L Hct 34.5 L (40.1-51.0) % MCV 94.0 H (79.0-92.2) fl MCH 31.9 (25.7-32.2) pg MCHC 33.9 (32.2-35.5) g/dl RDW Std Deviation 47.0 H (35.1-43.9) fL Plt Count 180 (163-337) K/mm3 MPV 10.6 (9.4-12.3) fl Sodium (136-145) mEq/L Potassium (3.5-5.1) mEq/L Chloride (98-107) mEq/L Carbon Dioxide (21-32) mEq/L Anion Gap (5-15) BUN (7-18) mg/dL Creatinine (0.7-1.3) mg/dL Est Cr Clr Drug Dosing mL/min Estimated GFR (MDRD) (>60) mL/min BUN/Creatinine Ratio (14-18) Glucose (83-115) mg/dL POC Glucose 281 H 216 H (83-110) mg/dL Calcium (8.5-10.1) mg/dL Magnesium (1.8-2.4) mg/dl C-Reactive Protein (<1.0) mg/dL 07/03/17 07/03/17 07/03/17 Range/Units 05:55 06:37 11:35 WBC (4.23-9.07) K/mm3 RBC (4.63-6.08) M/mm3 Hgb (13.7-17.5) gm/L Hct (40.1-51.0) % MCV (79.0-92.2) fl MCH (25.7-32.2) pg MCHC (32.2-35.5) g/dl RDW Std Deviation (35.1-43.9) fL Plt Count (163-337) K/mm3 MPV (9.4-12.3) fl Sodium 143 (136-145) mEq/L Potassium 4.2 (3.5-5.1) mEq/L Chloride 109 H (98-107) mEq/L Carbon Dioxide 24 (21-32) mEq/L Anion Gap 14.2 (5-15) BUN 17 (7-18) mg/dL Creatinine 0.9 (0.7-1.3) mg/dL Est Cr Clr Drug Dosing 63.32 mL/min Estimated GFR (MDRD) > 60 (>60) mL/min BUN/Creatinine Ratio 18.9 H (14-18) Glucose 156 H (83-115) mg/dL POC Glucose 148 H 142 H (83-110) mg/dL Calcium 8.3 L (8.5-10.1) mg/dL Magnesium 1.7 L (1.8-2.4) mg/dl C-Reactive Protein 9.3 H* (<1.0) mg/dL Arnold Results Last 24 Hours: Microbiology 07/01/17 23:50 Urine Culture - Preliminary Urine, Clean Catch NO GROWTH AFTER 1 DAY 07/01/17 23:50 Respiratory Virus Panel (PCR) - Final Nasopharyngeal Swab 07/01/17 23:50 Streptococcus pneumoniae Antigen (M - Final Urine 07/01/17 20:30 Aerobic Blood Culture - Preliminary Blood - Venous - Lab Draw NO GROWTH AFTER 1 DAY Anaerobic Blood Culture - Preliminary NO GROWTH AFTER 1 DAY 07/01/17 20:03 Aerobic Blood Culture - Preliminary Blood - Venous NO GROWTH AFTER 1 DAY Anaerobic Blood Culture - Preliminary NO GROWTH AFTER 1 DAY Med Orders - Current: Current Medications Acetaminophen (Tylenol) 650 mg PO Q4H PRN PRN Reason: Pain (Mild 1-3)/fever Hydrocodone Bitart/Acetaminophen ([place] 325-5 Mg) 1 tab PO Q4H PRN PRN Reason: Pain (moderate 4-6) Albuterol/Ipratropium (Duoneb 3.0-0.5 Mg/3 Ml) 3 ml NEB BID IVA Albuterol/Ipratropium (Duoneb 3.0-0.5 Mg/3 Ml) 3 ml NEB Q4H PRN PRN Reason: Shortness of Breath Ascorbic Acid (Vitamin C) 500 mg PO DAILY PRN PRN Reason: PATIENT TAKES WHEN HE WANTS IT Last Admin: 07/03/17 08:56 Dose: 500 mg Aspirin (Halfprin) 81 mg PO DAILY [facility] Last Admin: 07/03/17 08:56 Dose: 81 mg Bisacodyl (Dulcolax) 5 mg PO DAILY PRN PRN Reason: Constipation Budesonide (Pulmicort) 0.5 mg INH DAILY [facility] Last Admin: 07/03/17 08:01 Dose: 0.5 mg Calcium Carbonate (Calcium Carbonate/Vitamin D 600 Mg-200 Unit) 1 tab PO DAILY [facility] Last Admin: 07/03/17 08:55 Dose: 1 tab Cyanocobalamin (Vitamin B12) 1,000 mcg PO DAILY [facility] Last Admin: 07/03/17 08:55 Dose: 1,000 mcg Dextrose/Water (Dextrose 50% In Water) 50 ml IVPUSH ASDIRECTED PRN PRN Reason: Hypoglycemia Docusate Sodium (Colace) 100 mg PO DAILY PRN PRN Reason: Constipation Enoxaparin Sodium (Lovenox) 40 mg SUBCUT DAILY [facility] Last Admin: 07/03/17 09:00 Dose: 40 mg Fish Oil (Fish Oil) 1 gm PO DAILY [facility] Last Admin: 07/03/17 08:59 Dose: 1 gm Guaifenesin (Mucinex) 600 mg PO BID [facility] Last Admin: 07/03/17 08:59 Dose: 600 mg Guaifenesin/Phenylephrine HCl (Robitussin Dm) 10 ml PO Q4H PRN PRN Reason: Cough Hydralazine HCl (Apresoline) 10 mg IVPUSH Q4H PRN PRN Reason: Hypertension Hydromorphone HCl (Dilaudid) 0.25 mg IVPUSH Q2H PRN PRN Reason: Pain (severe 7-10) Promethazine HCl 6.25 mg/ (Sodium Chloride) 50.25 mls @ 100 mls/hr IV Q6H PRN PRN Reason: Nausea/Vomiting Sodium Chloride (Normal Saline) 1,000 mls @ 75 mls/hr IV ASDIRECTED [facility] Last Admin: 07/03/17 09:53 Dose: 75 mls/hr Sodium Chloride (Normal Saline) 250 mls @ 999 mls/hr IV .BOLUS [facility] Stop: 07/03/17 16:00 Last Admin: 07/03/17 11:09 Dose: 999 mls/hr Levofloxacin (Levaquin) 750 mg PO Q24H [facility] Lisinopril (Prinivil) 10 mg PO DAILY [facility] Last Admin: 07/03/17 08:57 Dose: 10 mg Lorazepam (Ativan) 2 mg IVPUSH Q4H PRN PRN Reason: Seizures Lorazepam (Ativan) 0.5 mg IV Q6H PRN PRN Reason: Anxiety Magnesium Oxide (Magnesium Oxide) 400 mg PO BID [facility] Last Admin: 07/03/17 08:55 Dose: 400 mg Magnesium Sulfate (Pharmacy To Dose - Magnesium Replacement) 1 dose .XX ASDIRECTED [facility] Metoprolol Tartrate (Lopressor) 5 mg IVPUSH Q4H PRN PRN Reason: Tachycardia Last Admin: 07/02/17 21:45 Dose: 5 mg Multivitamins (Thera) 1 each PO DAILY [facility] Last Admin: 07/03/17 08:55 Dose: 1 each Ondansetron HCl (Zofran) 4 mg IV Q6H PRN PRN Reason: Nausea/Vomiting Pantoprazole Sodium (Protonix) 40 mg PO DAILY@0700 [facility] Last Admin: 07/03/17 08:56 Dose: 40 mg Formoterol [ (Perforomist] 20 Mcg) 0 each INH BID [facility] Last Admin: 07/03/17 08:01 Dose: 1 each Polyethylene Glycol (Miralax) 17 gm PO DAILY PRN PRN Reason: Constipation Potassium Chloride (Pharmacy To Dose - Potassium Replacement) 1 dose .XX ASDIRECTED [facility] Temazepam (Restoril) 7.5 mg PO BEDTIME PRN PRN Reason: Sleep Tiotropium [place] (Spiriva Handihaler) 18 mcg INH DAILY [facility] Last Admin: 07/03/17 08:01 Dose: 1 cap Vitamin E (Vitamin E) 400 units PO ASDIRECTED [facility] Discontinued Medications Acetaminophen (Tylenol) 650 mg PO NOW ONE Stop: 07/01/17 20:00 Last Admin: 07/01/17 20:07 Dose: 650 mg Albuterol/Ipratropium (Duoneb 3.0-0.5 Mg/3 Ml) 3 ml NEB ONETIME ONE Stop: 07/01/17 20:00 Last Admin: 07/01/17 20:09 Dose: 3 ml Albuterol/Ipratropium (Duoneb 3.0-0.5 Mg/3 Ml) 3 ml NEB Q4HRRT PRN PRN Reason: Wheezing Last Admin: 07/03/17 08:01 Dose: 3 ml Albuterol/Ipratropium (Duoneb 3.0-0.5 Mg/3 Ml) 3 ml NEB BIDRT [facility] Sodium Chloride (Normal Saline) 1,000 mls @ 100 mls/hr IV ASDIRECTED [facility] Last Admin: 07/01/17 20:05 Dose: 100 mls/hr Levofloxacin/Dextrose 750 mg/ (Premix) 150 mls @ 100 mls/hr IV ONETIME ONE Stop: 07/01/17 22:11 Last Admin: 07/01/17 20:49 Dose: 100 mls/hr Magnesium Sulfate/Dextrose 1 (gm/ Premix) 100 mls @ 100 mls/hr IV ONETIME ONE Stop: 07/01/17 22:59 Last Admin: 07/01/17 23:56 Dose: 100 mls/hr Levofloxacin/Dextrose 750 mg/ (Premix) 150 mls @ 100 mls/hr IV Q24H [facility] Last Admin: 07/02/17 21:42 Dose: 100 mls/hr Levofloxacin/Dextrose (Levaquin In D5w 750 Mg/150 Ml) Confirm Administered Dose 150 mls @ as directed IV .STK-MED ONE Stop: 07/02/17 21:30 Last Admin: 07/02/17 22:23 Dose: Not Given Insulin Aspart (Novolog) 0 unit SUBCUT QIDACANDBED [facility]; Protocol Last Admin: 07/03/17 11:46 Dose: Not Given Iopamidol (Isovue-300 (61%)) 80 ml IVPUSH ONETIME ONE Stop: 07/03/17 10:48 Last Admin: 07/03/17 11:45 Dose: 80 ml Magnesium Oxide (Magnesium Oxide) 800 mg PO ONETIME ONE Stop: 07/03/17 07:31 Last Admin: 07/03/17 08:56 Dose: 800 mg Methylprednisolone Sodium Succinate (Solu-Medrol) 125 mg IVPUSH ONETIME ONE Stop: 07/01/17 23:01 Last Admin: 07/01/17 23:56 Dose: 125 mg Methylprednisolone Sodium Succinate (Solu-Medrol) 60 mg IVPUSH Q6H [facility] Last Admin: 07/03/17 06:27 Dose: 60 mg Sodium Chloride (Saline Flush) 10 ml FLUSH ONETIME PRN PRN Reason: IV FLUSH Stop: 07/03/17 12:00 Last Admin: 07/03/17 11:46 Dose: 10 ml - Problem List Review Problem List Initiated/Reviewed/Updated: Yes - My Orders Last 24 Hours: My Active Orders 07/03/17 07:04 Ascorbic Acid [Vitamin C] 500 mg PO DAILY PRN 07/03/17 07:15 Vitamin E (dl, acetate) [Vitamin E] 400 units PO ASDIRECTED 07/03/17 09:00 Tiotropium [Spiriva HandiHaler] 18 mcg INH DAILY 07/03/17 10:40 Sodium Chloride 0.9% [Normal Saline] 250 ml IV .BOLUS 07/03/17 21:00 Levofloxacin [Levaquin] 750 mg PO Q24H 07/04/17 05:11 BASIC METABOLIC PANEL,BMP [CHEM] AM C-REACTIVE PROTEIN [CHEM] AM CBC W/O DIFF,HEMOGRAM [HEME] AM MAGNESIUM [CHEM] AM 07/05/17 05:11 BASIC METABOLIC PANEL,BMP [CHEM] AM C-REACTIVE PROTEIN [CHEM] AM CBC W/O DIFF,HEMOGRAM [HEME] AM MAGNESIUM [CHEM] AM 07/06/17 05:11 BASIC METABOLIC PANEL,BMP [CHEM] AM C-REACTIVE PROTEIN [CHEM] AM CBC W/O DIFF,HEMOGRAM [HEME] AM MAGNESIUM [CHEM] AM 07/07/17 05:11 BASIC METABOLIC PANEL,BMP [CHEM] AM C-REACTIVE PROTEIN [CHEM] AM CBC W/O DIFF,HEMOGRAM [HEME] AM MAGNESIUM [CHEM] AM - Plan Plan:: CAP - 2/2 Fibrosis superimposed by PNA (CT scan) - Infectious work up so far all negative - Strongly supports aspirations - Continue current treatment Leukocytosis, Worse - 2/2 recent IV steroid use - Discontinued steroid wheezing has improved considerably - Continue to monitor COPD Exacerbation, Improving - Continue current treatment as above Patient continues to do well clinically. Encourage to ambulate as tolerated. Possible d/c in 1-2 days.
--- NOTE | 2017-07-03 12:51 | CT ---
CT chest Technique: Multiple axial sections through the chest were obtained. Intravenous contrast was utilized. Comparison: Previous CT chest performed as a pulmonary angiogram protocol dated 12/08/10. Findings: Severe emphysematous change is seen. Patchy increased density is seen within the right upper lung which does not appear mass-like. Emphysematous changes are most severe within both lung bases. Lungs otherwise are clear. Atherosclerotic calcification is noted within the thoracic aorta. No mediastinal or hilar adenopathy is seen. Minimal coronary artery calcification is seen. Small portion of the visualized upper abdominal structures are not optimally seen due to respiratory motion artifact but are grossly unremarkable. Small hiatal hernia is incidentally noted. Bone window settings were reviewed which show compression deformities at the thoracolumbar junction with one compression deformity showing vertebroplasty. Slight degenerative change is noted within the spine. Impression: 1. Severe emphysematous change most prominent within both lung bases. 2. Parenchymal density within the upper right lung which does not appear mass-like. CT exam has the appearance of focal fibrosis with possibly superimposed pneumonia if patient has infectious symptoms. 3. Other incidental findings. Diagnostic code #3
[2017-07-03] MEDS ORDERED: Albuterol/Ipratropium 3.0-0.5 MG/3 ML Neb Soln NEB PRN (13:37)
[2017-07-03] MEDS ORDERED: Albuterol/Ipratropium 3.0-0.5 MG/3 ML Neb Soln NEB SCH (21:00)
[2017-07-03] MEDS ORDERED: Levofloxacin 750 MG Tab PO SCH (21:00)
[2017-07-03] MEDS: Albuterol/Ipratropium 3.0-0.5 MG/3 ML Neb Soln NEB SCH (21:13)
[2017-07-04] MEDS: Pantoprazole 40 MG Tab.CR PO SCH (06:53)
[2017-07-04] MEDS: Sodium Chloride 0.9% 1,000 ML IV SCH (07:46)
[2017-07-04] MEDS: Albuterol/Ipratropium 3.0-0.5 MG/3 ML Neb Soln NEB SCH (08:39)
[2017-07-04] MEDS: Budesonide 0.5 MG/2 ML Neb Susp INH SCH (08:39)
[2017-07-04] MEDS: FORMOTEROL 20 MCG INH SCH (08:39)
[2017-07-04] MEDS: Tiotropium Inhaler 18 MCG Inhalation Powder Cap Kit of 5 INH SCH (08:39)
[2017-07-04] MEDS: Enoxaparin 40 MG/0.4 ML Syringe SUBCUT SCH (08:55)
[2017-07-04] MEDS: Fish Oil/Omega-3 Fatty Acids 1 Gm Cap PO SCH (08:55)
[2017-07-04] MEDS: Calcium Carbonate/Vitamin D3 600 MG-200 Units Tab PO SCH (08:55)
[2017-07-04] MEDS: Aspirin 81 MG Tab.EC PO SCH (08:55)
[2017-07-04] MEDS: Magnesium Oxide 400 MG Tab PO SCH (08:56)
[2017-07-04] MEDS: Cyanocobalamin (Vitamin B12) 1,000 MCG Tab PO SCH (08:56)
[2017-07-04] MEDS: guaiFENesin 600 MG Tab.ER PO SCH (08:56)
[2017-07-04] MEDS: Multivitamins,Therapeutic Tab PO SCH (08:56)
[2017-07-04] MEDS: Lisinopril 10 MG Tab PO SCH (09:30)
--- NOTE | 2017-07-04 12:03 | PCM.DCSUM1 ---
Discharge Summary - Hospital Course HPI Initial Comments: 76-year-old male presents the ED with his family members. Apparently he's been running a temperature at home for 2 days increased productive cough and shortness of breath on minimal exertion. Can lay down to sleep at all. In using his home nebulizer with minimal improvement. Off sounds very productive and apparently has slight green color to it no blood has been appreciated. O2 sats were in the low 80s when paramedics arrived. Apparently he is on oxygen 2 L/m at all times. He was placed on 6 L/m by the paramedics and arrived with sats of 97%. On reduction of his oxygen level to 4 L/m he remains 95-97% at rest. 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 Apparently his appetite is about half normal. He has not received any medication for fever or chills today. He did receive a DuoNeb treatment en route to the hospital by paramedics. - Discharge Data Discharge Date: 07/04/17 (admitted 07/01/17) Discharge Disposition: Home, Self-Care 01 Condition: Good - Discharge Diagnosis/Problem(s) (1) COPD exacerbation SNOMED Code(s): 276099317 ICD Code: J44.1 - CHRONIC OBSTRUCTIVE PULMONARY DISEASE W (ACUTE) EXACERBATION Status: Acute Priority: High Current Visit: Yes (2) Respiratory failure SNOMED Code(s): 775082808 ICD Code: J96.90 - RESPIRATORY FAILURE, UNSP, UNSP W HYPOXIA OR HYPERCAPNIA Status: Acute Priority: High Current Visit: Yes Qualifiers: Chronicity: acute on chronic Respiratory failure complication: hypoxia Qualified Code(s): J96.21 - Acute and chronic respiratory failure with hypoxia (3) GERD (gastroesophageal reflux disease) SNOMED Code(s): 289678288 ICD Code: K21.9 - GASTRO-ESOPHAGEAL REFLUX DISEASE WITHOUT ESOPHAGITIS Status: Chronic Priority: Low Current Visit: Yes Qualifiers: Esophagitis presence: esophagitis presence not specified Qualified Code(s) : K21.9 - Gastro-esophageal reflux disease without esophagitis (4) HTN (hypertension) SNOMED Code(s): 33464293 ICD Code: I10 - ESSENTIAL (PRIMARY) HYPERTENSION Status: Chronic Priority : Medium Current Visit: Yes Qualifiers: Hypertension type: unspecified Qualified Code(s): I10 - Essential (primary ) hypertension (5) History of CVA with residual deficit SNOMED Code(s): 058908781 ICD Code: I69.30 - UNSPECIFIED SEQUELAE OF CEREBRAL INFARCTION Status: Chronic Priority: Medium Current Visit: Yes - Patient Summary/Data Operative Procedure(s) Performed: none Complications: none Consults: Consultations 07/01/17 21:45 Consult to Spiritual Care [CONS] Routine OT Evaluation and Treatment [CONS] Routine PT Evaluation and Treatment [CONS] Routine Respiratory Care Assess and Treatment [CONS] Routine 07/01/17 22:50 Consult to Speech Language Pathology [CORROSION CONTROL TECHNICIAN Evaluation and Treatment] [CONS] Routine Labs Pending at D/C: none Recommended Follow-up Testing/Procedures: Recommend outpatient swallow test, as this visit may have been caused by aspiration. Planned Operative Procedure(s) after DC: none Hospital Course: Assessment/Plan: Acute: CAP vs Aspiration Syndrome vs Malignancy vs Fibrosis - Risk Factors: COPD, Dysarthria, Chronic Hypoxia on 2L NC, and Pyrosis/ Reflux Disease - CURB 65 score is 4: meets criteria for inpatient with possible ICU admission - CXR 07/01/17 and 07/03/17--> right upper lobe infiltrate - CRP 16.9-->9.3-->4 - He is now on 3L NC - IV Levaquin--> D/C today, start Levoquin 750 PO (07/03/17)-->continue at home x3 days with probiotic - Bronchodilators, Decongestant/Expectorant, RT Care and Supplemental O2 -Increased SOB today--> Increase Duoneb from PRN to BID - FV/IS as directed - Mycoplasma Pneumonia Ag and Screening Influenza--> both negative - Strep pneumonia ag, Sputum Culture, Respiratory Panel, and Blood Cultures-- > all negative - Serial CXR as indicated - CORROSION CONTROL TECHNICIAN eval - CT with angiogram today to r/o malignancy -Per Dr. Arora, showed parenchymal density within the RUL which does not appear mass-like. -Appearance of focal fibrosis with possible superimposed PNA. COPD Exacerbation, Improved - Advanced - IV Solumedrol and Smooth Muscle Relaxants--> D/C Solumedrol today (07/03/17) - Additional treatment as above Leukocytosis, Improved - 2/2 Solumedrol - WBC 18K--> 15K-->20K-->17k - CRP 11--> 16.94-->9.3-->4 - Monitor Resolved: S/p Hypomagnesemia - Mg 1.7--> 1.8-->1.7 - 2/2 poor intake and respiratory insufficiency - Replete and monitor S/p Acute Respiratory Failure, Hypoxic - Acute on chronic - 2/2 CAP and COPD - Has baseline pulmonary Insufficiency - O2 dependent on 2L NC--> 6L NC--> now on 3L NC - NIPPV if needed Chronic: HTN Hx/o CVA--> Recommend outpt swallow test GERD Hx/o Lip Cancer Gait Instability Plan: He is doing better clinically Continue current treatment Routine AM Labs Aspiration and Fall Precautions RT/PT/OT consult SW/CM for d/c planning Ambulated as tolerated TID Full code; PCP: Barry Botello has recovered quite well after being admitted for PNA and COPD exacerbation. He had multiple tests done. All infectious work up has been negative. Xray showed right upper lobe infiltrate. CT showed fibrosis superimposed by PNA- strongly supports aspirations with his history of CVA. We recommend having an outpatient swallow test to confirm- this can be ordered by his primary care provider. Wheezing was treated with steroids and has since resolved. He should follow-up with his primary care provider in 7-10 days. He was discharged home on Levoquin 750 x3 days as well as a probiotic [id number]. He will be discharged home today. - Patient Instructions Diet: Usual Diet as Tolerated Activity: As Tolerated Showering/Bathing: May Shower Notify Provider of: Fever, Increased Pain, Nausea and/or Vomiting - Discharge Plan Prescriptions/Med Rec: Levofloxacin [Levaquin] 750 mg PO Q24H #3 tablet Saccharomyces Boulardii [Florastor] 250 mg PO BIDMEALS #20 cap Home Medications: Home Meds Albuterol Sulfate [Albuterol Sulfate HFA] 2 puff IH ASDIRECTED PRN 04/02/14 [ History] Aspirin [Halfprin] 81 mg PO DAILY 04/02/14 [History] Budesonide [Pulmicort] 0.5 mg INH DAILY 04/02/14 [History] Cyanocobalamin/Folic Acid [Vitamin Q00-Knful Acid] 1,000 mcg PO DAILY 04/02/14 [ History] Fish Oil/DHA/EPA [Fish Oil 1,200 MG] 1 cap PO BID 04/02/14 [History] Formoterol [Perforomist] 20 mcg INH BID 04/02/14 [History] Lisinopril 10 mg PO DAILY 04/02/14 [History] Multivitamin [Daily Vitamin] 1 tab PO DAILY 04/02/14 [History] Omeprazole [Prilosec] 20 mg PO DAILY 04/02/14 [History] Tiotropium [Spiriva HandiHaler] 18 mcg INH DAILY 04/02/14 [History] Vitamin E 400 unit PO ASDIRECTED 04/02/14 [History] Ascorbate Calcium [Vitamin C] 500 mg PO DAILY PRN 07/01/17 [History] Calcium Carbonate/Vitamin D3 [Calcium 600-Vit D3 500 Softgel] 1 cap PO DAILY 06/15 [History] Docusate Sodium [Colace] 100 mg PO DAILY PRN 07/01/17 [History] Levofloxacin [Levaquin] 750 mg PO Q24H #3 tablet 07/04/17 [Rx] Saccharomyces Boulardii [Florastor] 250 mg PO BIDMEALS #20 cap 07/04/17 [Rx] Patient Handouts: Chronic Obstructive Pulmonary Disease Exacerbation, Easy-to- Read, Aspiration Pneumonia Referrals: Barry Delgado MD [Primary Care Provider] - 07/10/17 2:30 pm (Please follow up with Dr. Delgado on July 10 at 2:30pm) - Discharge Summary/Plan Comment DC Time >30 min.: Yes (40) - General Info Date of Service: 07/04/17 Admission Dx/Problem (Free Text: Admission Diagnosis/Problem Admission Diagnosis/Problem Pneumonia Subjective Update: In to see Ayan today. He is sitting in a chair visiting with family. Overall he is doing well. He has no complaints. He has been sleeping well. Good appetite. Ambulating. Pain is controlled. No Fever, chills, nausea, vomiting, diarrhea. Urinating. Incentive Spirometry. No other concerns from nursing. He is ready for discharge today. Functional Status: Reports: Pain Controlled, Tolerating Diet, Ambulating, Urinating, Incentive Spirometry - Review of Systems General: Reports: No Symptoms. Denies: Fever, Chills HEENT: Reports: No Symptoms Pulmonary: Reports: Cough (improved). Denies: Sputum Cardiovascular: Reports: No Symptoms. Denies: Chest Pain, Edema Gastrointestinal: Reports: No Symptoms. Denies: Abdominal Pain, Diarrhea, Nausea, Vomiting Genitourinary: Reports: No Symptoms. Denies: Dysuria, Frequency, Burning, Pain Musculoskeletal: Reports: No Symptoms Skin: Reports: No Symptoms Neurological: Reports: No Symptoms Psychiatric: Reports: No Symptoms - Patient Data Vitals - Most Recent: Last Vital Signs Temp 98.6 F 07/04/17 11:48 Pulse 68 07/04/17 11:48 Resp 22 H 07/04/17 11:48 BP 91/61 07/04/17 11:48 Pulse Ox 98 07/04/17 11:48 Weight - Most Recent: 151 lb 1.6 oz I&O - Last 24 hours: Intake & Output 07/03/17 07/04/17 07/04/17 22:59 06:59 14:59 Intake Total 2009 1475 180 Output Total 675 1100 Balance 1335 375 180 Lab Results - Last 24 hrs: Laboratory Results - last 24 hr 07/03/17 07/04/17 07/04/17 Range/Units 17:19 05:41 05:41 WBC 17.22 H (4.23-9.07) K/mm3 RBC 3.48 L (4.63-6.08) M/mm3 Hgb 10.9 L (13.7-17.5) gm/L Hct 33.2 L (40.1-51.0) % MCV 95.4 H (79.0-92.2) fl MCH 31.3 (25.7-32.2) pg MCHC 32.8 (32.2-35.5) g/dl RDW Std Deviation 48.8 H (35.1-43.9) fL Plt Count 169 (163-337) K/mm3 MPV 10.3 (9.4-12.3) fl Sodium 143 (136-145) mEq/L Potassium 4.4 (3.5-5.1) mEq/L Chloride 111 H (98-107) mEq/L Carbon Dioxide 27 (21-32) mEq/L Anion Gap 9.4 (5-15) BUN 24 H (7-18) mg/dL Creatinine 0.8 (0.7-1.3) mg/dL Est Cr Clr Drug Dosing 73.77 mL/min Estimated GFR (MDRD) > 60 (>60) mL/min BUN/Creatinine Ratio 30.0 H (14-18) Glucose 112 (83-115) mg/dL POC Glucose 192 H (83-110) mg/dL Calcium 8.1 L (8.5-10.1) mg/dL Magnesium 1.8 (1.8-2.4) mg/dl C-Reactive Protein 4.0 H* (<1.0) mg/dL HAL Results - Last 24 hrs: Microbiology 07/01/17 23:50 Urine Culture - Final Urine, Clean Catch NO GROWTH AFTER 2 DAYS 07/01/17 20:30 Aerobic Blood Culture - Preliminary Blood - Venous - Lab Draw NO GROWTH AFTER 2 DAYS Anaerobic Blood Culture - Preliminary NO GROWTH AFTER 2 DAYS 07/01/17 20:03 Aerobic Blood Culture - Preliminary Blood - Venous NO GROWTH AFTER 2 DAYS Anaerobic Blood Culture - Preliminary NO GROWTH AFTER 2 DAYS Med Orders - Current: Current Medications Acetaminophen (Tylenol) 650 mg PO Q4H PRN PRN Reason: Pain (Mild 1-3)/fever Hydrocodone Bitart/Acetaminophen ([place] 325-5 Mg) 1 tab PO Q4H PRN PRN Reason: Pain (moderate 4-6) Albuterol/Ipratropium (Duoneb 3.0-0.5 Mg/3 Ml) 3 ml NEB BID [facility] Last Admin: 07/04/17 08:39 Dose: 3 ml Albuterol/Ipratropium (Duoneb 3.0-0.5 Mg/3 Ml) 3 ml NEB Q4H PRN PRN Reason: Shortness of Breath Last Admin: 07/03/17 15:19 Dose: 3 ml Ascorbic Acid (Vitamin C) 500 mg PO DAILY PRN PRN Reason: PATIENT TAKES WHEN HE WANTS IT Last Admin: 07/03/17 08:56 Dose: 500 mg Aspirin (Halfprin) 81 mg PO DAILY [facility] Last Admin: 07/04/17 08:55 Dose: 81 mg Bisacodyl (Dulcolax) 5 mg PO DAILY PRN PRN Reason: Constipation Budesonide (Pulmicort) 0.5 mg INH DAILY [facility] Last Admin: 07/04/17 08:39 Dose: 0.5 mg Calcium Carbonate (Calcium Carbonate/Vitamin D 600 Mg-200 Unit) 1 tab PO DAILY [facility] Last Admin: 07/04/17 08:55 Dose: 1 tab Cyanocobalamin (Vitamin B12) 1,000 mcg PO DAILY [facility] Last Admin: 07/04/17 08:56 Dose: 1,000 mcg Dextrose/Water (Dextrose 50% In Water) 50 ml IVPUSH ASDIRECTED PRN PRN Reason: Hypoglycemia Docusate Sodium (Colace) 100 mg PO DAILY PRN PRN Reason: Constipation Enoxaparin Sodium (Lovenox) 40 mg SUBCUT DAILY [facility] Last Admin: 07/04/17 08:55 Dose: 40 mg Fish Oil (Fish Oil) 1 gm PO DAILY [facility] Last Admin: 07/04/17 08:55 Dose: 1 gm Guaifenesin (Mucinex) 600 mg PO BID [facility] Last Admin: 07/04/17 08:56 Dose: 600 mg Guaifenesin/Phenylephrine HCl (Robitussin Dm) 10 ml PO Q4H PRN PRN Reason: Cough Hydralazine HCl (Apresoline) 10 mg IVPUSH Q4H PRN PRN Reason: Hypertension Hydromorphone HCl (Dilaudid) 0.25 mg IVPUSH Q2H PRN PRN Reason: Pain (severe 7-10) Promethazine HCl 6.25 mg/ (Sodium Chloride) 50.25 mls @ 100 mls/hr IV Q6H PRN PRN Reason: Nausea/Vomiting Sodium Chloride (Normal Saline) 1,000 mls @ 75 mls[facility] Last Admin: 07/04/17 07:46 Dose: 75 mls/hr Levofloxacin (Levaquin) 750 mg PO Q24H [facility] Last Admin: 07/03/17 20:19 Dose: 750 mg Lisinopril (Prinivil) 10 mg PO DAILY [facility] Last Admin: 07/04/17 09:30 Dose: 10 mg Lorazepam (Ativan) 2 mg IVPUSH Q4H PRN PRN Reason: Seizures Lorazepam (Ativan) 0.5 mg IV Q6H PRN PRN Reason: Anxiety Magnesium Oxide (Magnesium Oxide) 400 mg PO BID [facility] Last Admin: 07/04/17 08:56 Dose: 400 mg Magnesium Sulfate (Pharmacy To Dose - Magnesium Replacement) 1 dose .XX ASDIRECTED [facility] Metoprolol Tartrate (Lopressor) 5 mg IVPUSH Q4H PRN PRN Reason: Tachycardia Last Admin: 07/02/17 21:45 Dose: 5 mg Multivitamins (Thera) 1 each PO DAILY [facility] Last Admin: 07/04/17 08:56 Dose: 1 each Ondansetron HCl (Zofran) 4 mg IV Q6H PRN PRN Reason: Nausea/Vomiting Pantoprazole Sodium (Protonix) 40 mg PO DAILY@0700 [facility] Last Admin: 07/04/17 06:53 Dose: 40 mg Formoterol [ (Perforomist] 20 Mcg) 0 each INH BID [facility] Last Admin: 07/04/17 08:39 Dose: 1 each Polyethylene Glycol (Miralax) 17 gm PO DAILY PRN PRN Reason: Constipation Potassium Chloride (Pharmacy To Dose - Potassium Replacement) 1 dose .XX ASDIRECTED [facility] Temazepam (Restoril) 7.5 mg PO BEDTIME PRN PRN Reason: Sleep Tiotropium [place] (Spiriva Handihaler) 18 mcg INH DAILY [facility] Last Admin: 07/04/17 08:39 Dose: 1 cap Vitamin E (Vitamin E) 400 units PO ASDIRECTED [facility] Discontinued Medications Acetaminophen (Tylenol) 650 mg PO NOW ONE Stop: 07/01/17 20:00 Last Admin: 07/01/17 20:07 Dose: 650 mg Albuterol/Ipratropium (Duoneb 3.0-0.5 Mg/3 Ml) 3 ml NEB ONETIME ONE Stop: 07/01/17 20:00 Last Admin: 07/01/17 20:09 Dose: 3 ml Albuterol/Ipratropium (Duoneb 3.0-0.5 Mg/3 Ml) 3 ml NEB Q4HRRT PRN PRN Reason: Wheezing Last Admin: 07/03/17 08:01 Dose: 3 ml Albuterol/Ipratropium (Duoneb 3.0-0.5 Mg/3 Ml) 3 ml NEB BIDRT [facility] Sodium Chloride (Normal Saline) 1,000 mls @ 100 mls/hr IV ASDIRECTED [facility] Last Admin: 07/01/17 20:05 Dose: 100 mls/hr Levofloxacin/Dextrose 750 mg/ (Premix) 150 mls @ 100 mls/hr IV ONETIME ONE Stop: 07/01/17 22:11 Last Admin: 07/01/17 20:49 Dose: 100 mls/hr Magnesium Sulfate/Dextrose 1 (gm/ Premix) 100 mls @ 100 mls/hr IV ONETIME ONE Stop: 07/01/17 22:59 Last Admin: 07/01/17 23:56 Dose: 100 mls/hr Levofloxacin/Dextrose 750 mg/ (Premix) 150 mls @ 100 mls/hr IV Q24H [facility] Last Admin: 07/02/17 21:42 Dose: 100 mls/hr Levofloxacin/Dextrose (Levaquin In D5w 750 Mg/150 Ml) Confirm Administered Dose 150 mls @ as directed IV .STK-MED ONE Stop: 07/02/17 21:30 Last Admin: 07/02/17 22:23 Dose: Not Given Sodium Chloride (Normal Saline) 250 mls @ 999 mls/hr IV .BOLUS [facility] Stop: 07/03/17 16:00 Last Admin: 07/03/17 11:09 Dose: 999 mls/hr Insulin Aspart (Novolog) 0 unit SUBCUT QIDACANDBED [facility]; Protocol Last Admin: 07/03/17 11:46 Dose: Not Given Iopamidol (Isovue-300 (61%)) 80 ml IVPUSH ONETIME ONE Stop: 07/03/17 10:48 Last Admin: 07/03/17 11:45 Dose: 80 ml Magnesium Oxide (Magnesium Oxide) 800 mg PO ONETIME ONE Stop: 07/03/17 07:31 Last Admin: 07/03/17 08:56 Dose: 800 mg Methylprednisolone Sodium Succinate (Solu-Medrol) 125 mg IVPUSH ONETIME ONE Stop: 07/01/17 23:01 Last Admin: 07/01/17 23:56 Dose: 125 mg Methylprednisolone Sodium Succinate (Solu-Medrol) 60 mg IVPUSH Q6H [facility] Last Admin: 07/03/17 06:27 Dose: 60 mg Sodium Chloride (Saline Flush) 10 ml FLUSH ONETIME PRN PRN Reason: IV FLUSH Stop: 07/03/17 12:00 Last Admin: 07/03/17 11:46 Dose: 10 ml - Exam Quality Assessment: Reports: Supplemental Oxygen (3L nasal cannula), DVT Prophylaxis. Denies: Urine Catheter General: Reports: Alert, Oriented, Cooperative, No Acute Distress HEENT: Reports: Pupils Equal, Pupils Reactive, EOMI, Mucous Membr. Moist/[place] Neck: Reports: Supple Lungs: Reports: Normal Respiratory Effort, Wheezing (improved- appears to be baseline). Denies: Crackles, Rhonchi Cardiovascular: Reports: Regular Rate, Regular Rhythm GI/Abdominal Exam: Normal Bowel Sounds, Soft, Non-Tender, No Organomegaly, No Distention, No Abnormal Bruit, No Mass, Pelvis Stable (Male) Exam: Deferred Rectal (Males) Exam: Deferred Back Exam: Reports: Normal Inspection, Full Range of Motion Extremities: Normal Inspection, Normal Range of Motion, Non-Tender, No Pedal Edema, Normal Capillary Refill Skin: Reports: Warm, Dry, Intact Neurological: Reports: No New Focal Deficit, Other (baseline dysarthia, h/o CVA) Psy/Mental Status: Reports: Alert, Normal Affect, Normal Mood
== END 2017-07-04 13:48 | disposition home or self-care (01) | DRG 190 ==
LOC: JD.ED 19:23 → JD.MS 21:19
PROVIDERS: ADMIT Internal Medicine; ATTEND Internal Medicine
DX: J44.0 Chronic obstructive pulmonary disease with (acute) lower respiratory infection (principal); J18.9 Pneumonia, unspecified organism; J45.901 Unspecified asthma with (acute) exacerbation; J44.1 Chronic obstructive pulmonary disease with (acute) exacerbation; J96.21 Acute and chronic respiratory failure with hypoxia; J69.0 Pneumonitis due to inhalation of food and vomit; C80.1 Malignant (primary) neoplasm, unspecified; I69.328 Other speech and language deficits following cerebral infarction; I69.351 Hemiplegia and hemiparesis following cerebral infarction affecting right dominant side; J84.10 Pulmonary fibrosis, unspecified; Z87.891 Personal history of nicotine dependence; Z99.81 Dependence on supplemental oxygen; I10 Essential (primary) hypertension; K21.9 Gastro-esophageal reflux disease without esophagitis; E83.42 Hypomagnesemia; I69.322 Dysarthria following cerebral infarction; R26.81 Unsteadiness on feet; Z79.82 Long term (current) use of aspirin; Z79.899 Other long term (current) drug therapy
CPT/HCPCS: 36415; 36600; 71045; 80053; 82553; 82803; 83735; 83880; 84484; 85025; 85610; 86140; 86738; 87040 ×2; 87804 ×2; 93005; 94640; 94762; 96360; 99285; A9270; J1956; J7040; 71260; 71260-26; 80048; 81001; 82962; 85027; 87086; 87486; 87581; 87633; 87798; 87899; 92610-GN; 93010; 94664; 94667; 94760; 94761; 97110-GP; 97116-GP; 97162-GP; 97167-GO; 97530-GO; J1650; J1815-GY; J2920; J2930; J3475; J3490; J7050; Q9967

== ENCOUNTER 2021-05-12 12:45 | Inpatient (IN) | payer MEDICARE, BC ==
[2021-05-12] MEDS ORDERED: Sodium Chloride 0.9% 10 ML Syringe FLUSH PRN (13:08)
[2021-05-12] MEDS ORDERED: Sodium Chloride 0.9% 1,000 ML IV SCH (13:15)
[2021-05-12] MEDS ORDERED: HYDROmorphone 0.5 MG/0.5 ML Syringe IVPUSH PRN (16:45)
[2021-05-12] MEDS ORDERED: Ondansetron 4 MG/2 ML SDV IV PRN (16:45)
[2021-05-12] MEDS ORDERED: Acetaminophen 325 MG Tab PO PRN (16:45)
[2021-05-12] MEDS ORDERED: Pantoprazole 40 MG in Sodium Chloride 0.9% 100 ML IV SCH (17:00)
[2021-05-12] MEDS ORDERED: FLU Vacc QS2021(65UP)/MF59C/PF 60 MCG/0.5 ML Syringe IM ONE (18:00)
[2021-05-12] MEDS ORDERED: Polyethylene Glycol/Electrolytes 4,000 ML Bottle PO ONE (18:00)
[2021-05-12] MEDS: Pantoprazole 40 MG Vial IVPUSH SCH (18:48)
[2021-05-12] MEDS: Dextrose 5%-Lactated Ringers 1,000 ML IV SCH (18:48)
[2021-05-12] MEDS: Albuterol/Ipratropium 3.0-0.5 MG/3 ML Neb Soln NEB SCH (20:32)
[2021-05-13] MEDS: Pantoprazole 40 MG Vial IVPUSH SCH ×2 (05:51→18:16)
[2021-05-13] MEDS: Albuterol/Ipratropium 3.0-0.5 MG/3 ML Neb Soln NEB SCH ×4 (06:14→21:01)
[2021-05-13] MEDS: Dextrose 5%-Lactated Ringers 1,000 ML IV SCH (08:06)
[2021-05-13] MEDS ORDERED: fentaNYL 100 MCG/2 ML SDV ONE (08:46)
[2021-05-13] MEDS ORDERED: Propofol 200 MG/20 ML SDV ONE ×2 (08:46→09:35)
[2021-05-13] MEDS ORDERED: Lactated Ringers 500 ML ONE (09:03)
[2021-05-13] MEDS ORDERED: Lidocaine 1% with EPINEPHrine 1:100,000 10 ML MDV ONE (10:28)
[2021-05-14] MEDS: Pantoprazole 40 MG Vial IVPUSH SCH (05:35)
[2021-05-14] MEDS: Albuterol/Ipratropium 3.0-0.5 MG/3 ML Neb Soln NEB SCH ×4 (06:37→20:55)
[2021-05-15] MEDS: Albuterol/Ipratropium 3.0-0.5 MG/3 ML Neb Soln NEB SCH ×2 (05:25→09:27)
[2021-05-15] MEDS ORDERED: Pantoprazole 40 MG Tab.CR PO SCH (06:00)
== END 2021-05-15 14:14 | disposition home or self-care (01) | DRG 394 ==
LOC: JD.ED 12:45 → JD.MS 16:06
PROVIDERS: ADMIT Hospitalist; ATTEND Hospitalist
PROC: 0DBP8ZX Excision of Rectum, Via Natural or Artificial Opening Endoscopic, Diagnostic (ICD-10-PCS; 2021-05-13)
PROC: 0DB58ZX Excision of Esophagus, Via Natural or Artificial Opening Endoscopic, Diagnostic (ICD-10-PCS; 2021-05-13)
PROC: 3E0H8GC Introduction of Other Therapeutic Substance into Lower GI, Via Natural or Artificial Opening Endoscopic (ICD-10-PCS; 2021-05-13)
PROC: 3E02340 Introduction of Influenza Vaccine into Muscle, Percutaneous Approach (ICD-10-PCS; principal; 2021-05-15)
DX: K62.9 Disease of anus and rectum, unspecified (principal); I69.351 Hemiplegia and hemiparesis following cerebral infarction affecting right dominant side; K92.1 Melena; J44.9 Chronic obstructive pulmonary disease, unspecified; K20.90 Esophagitis, unspecified without bleeding; J43.9 Emphysema, unspecified; Z66 Do not resuscitate; K44.9 Diaphragmatic hernia without obstruction or gangrene; Z20.822 Contact with and (suspected) exposure to COVID-19; I10 Essential (primary) hypertension; K21.9 Gastro-esophageal reflux disease without esophagitis; K59.09 Other constipation; N28.1 Cyst of kidney, acquired; Z23 Encounter for immunization; Z86.711 Personal history of pulmonary embolism; Z87.891 Personal history of nicotine dependence; Z79.899 Other long term (current) drug therapy; Z79.82 Long term (current) use of aspirin; I69.320 Aphasia following cerebral infarction; Z79.51 Long term (current) use of inhaled steroids
CPT/HCPCS: 36415; 74176; 80053; 83690; 85025; 85610; 85730; 99284; J7030; U0002; 00813; 76770; 76770-26; 80048; 85014; 85018; 85027; 90694; 94640; 94761; 99100; A9270-GY; C9113; G0008; J1170; J2370; J2704; J3010; J7120; J7121; J7620-GY

== ENCOUNTER 2022-07-29 22:28 | Emergency (ER) | payer MEDICARE, BC ==
[2022-07-29] MEDS ORDERED: methylPREDNISolone Sodium Succinate 125 MG/2 ML SDV IVPUSH ONE (22:51)
[2022-07-29] MEDS ORDERED: Albuterol/Ipratropium 3.0-0.5 MG/3 ML Neb Soln NEB ONE (22:52)
[2022-07-29] MEDS ORDERED: Albuterol/Ipratropium 3.0-0.5 MG/3 ML Neb Soln ONE (22:52)
[2022-07-29 23:44] LABS: CORONAVIRUS COVID-19 NAA NEGATIVE (NEGATIVE)
[2022-07-30] MEDS ORDERED: Albuterol/Ipratropium 3.0-0.5 MG/3 ML Neb Soln NEB ONE (00:19)
== END 2022-07-30 01:50 | disposition home or self-care (01) ==
LOC: JD.ED 22:28
DX: J44.1 Chronic obstructive pulmonary disease with (acute) exacerbation (principal); I10 Essential (primary) hypertension; K21.9 Gastro-esophageal reflux disease without esophagitis; Z86.73 Personal history of transient ischemic attack (TIA), and cerebral infarction without residual deficits; Z79.899 Other long term (current) drug therapy; Z20.822 Contact with and (suspected) exposure to COVID-19
CPT/HCPCS: 0240U; 36415; 71045; 80053; 82803; 83605; 83880; 84484; 85025; 85379; 85610; 87040; 93005; 94640; 96374; 99285; J2930; J7620-GY

== ENCOUNTER 2022-08-14 20:08 | Emergency (ER) | payer MEDICARE, BC ==
[2022-08-14] MEDS ORDERED: Sodium Chloride 0.9% 1,000 ML IV ONE (20:32)
[2022-08-14] MEDS: Sodium Chloride 0.9% 10 ML Syringe FLUSH PRN ×2 (20:50→23:31)
[2022-08-14 21:00] LABS: HEMATOCRIT 39.1 % (40.1-51.0); HEMOGLOBIN 12.9 gm/dl (13.7-17.5); MEAN CORPUSCULAR HEMOGLOBIN 33.1 pg (25.7-32.2); MEAN CORPUSCULAR VOLUME 100.3 fl (79.0-92.2); PLATELET COUNT,PLT 226 K/mm3 (163-337); WHITE BLOOD CELL COUNT,WBC 23.58 K/mm3 (4.23-9.07)
[2022-08-14 21:09] LABS: BASE EXCESS ARTERIAL 4.1 (-2-2.0); BICARBONATE,ARTERIAL 28.7 meq/L (22.0-26.0); O2 SATURATION ARTERIAL 89.6 % (96.0-97.0)
[2022-08-14 21:18] LABS: INR 1.05; PROTHROMBIN TIME 11.2 SECONDS (9.7-12.0)
[2022-08-14 21:23] LABS: APPEARANCE,URINE CLEAR (Clear); BILIRUBIN,URINE NEGATIVE (Negative); COLOR,URINE YELLOW (Yellow); GLUCOSE,URINE NEGATIVE (Negative); KETONES,URINE TRACE (Negative); LEUKOCYTE ESTERASE,URINE NEGATIVE (Negative); NITRITE,URINE NEGATIVE (Negative); OCCULT BLOOD,URINE NEGATIVE (Negative); PROTEIN,URINE 1+ (Negative); UROBILINOGEN,URINE 0.2 (0.2-1.0)
[2022-08-14 21:30] LABS: ANISOCYTOSIS 2+ MODERATE; BAND PERCENT MAN 2 % (0-10); BASOPHILS PERCENT MAN 0 (0.2-1.2); EOSINOPHILS PERCENT MAN 1 % (0.8-7.0); LYMPHOCYTES % ATYPICAL MANUAL 0 %; LYMPHOCYTES PERCENT MAN 4 % (20-40); MONOCYTES PERCENT MAN 7 % (2-10)
[2022-08-14 21:32] LABS: LACTIC ACID 1.5 mmol/L (0.4-2.0); PLATELET COUNT ESTIMATE ADEQUATE
[2022-08-14 21:35] LABS: TOXIC GRANULATION FEW
[2022-08-14 21:38] LABS: A/G RATIO 0.8 (1-2); ALANINE AMINOTRANSFERASE,ALT 48 U/L (16-63); ALKALINE PHOSPHATASE 98 U/L (46-116); ANION GAP 12.2 (5-15); ASPARTATE AMNIOTRANSFERASE,AST 30 U/L (15-37); BILIRUBIN TOTAL 0.6 mg/dL (0.2-1.0); BLOOD UREA NITROGEN,BUN 19 mg/dL (7-18); BUN/CREATININE RATIO 21.1 (14-18); C-REACTIVE PROTEIN 1.8 mg/dL (<1.0); CALCIUM 8.7 mg/dL (8.5-10.1); CARBON DIOXIDE,CO2 27 mEq/L (21-32); CHLORIDE,CL 100 mEq/L (98-107); CREATININE 0.9 mg/dL (0.7-1.3); ESTIMATED GFR 85 mL/min (>60); GLUCOSE RANDOM 150 mg/dL (70-99); POTASSIUM,K 4.2 mEq/L (3.5-5.1); PROTEIN TOTAL,TP 6.9 g/dl (6.4-8.2); SODIUM,NA 135 mEq/L (136-145); TROPONIN I HIGH SENSITIVITY 42 pg/mL (<=76)
[2022-08-14 21:52] LABS: CORONAVIRUS COVID-19 NAA NEGATIVE (NEGATIVE); INFLUENZA A NAA NEGATIVE (NEGATIVE); RESPIRATORY SYNCYTIAL VIR NAA NEGATIVE (NEGATIVE)
[2022-08-14 22:05] LABS: BACTERIA,URINE FEW /hpf (FEW); MUCUS,URINE MODERATE /hpf (FEW); RBC,URINE 0-5 /hpf (0-5); SQUAMOUS EPITHELIAL CELLS,UR 0-5 /hpf (0-5); WBC,URINE 0-5 /hpf (0-5)
[2022-08-14] MEDS ORDERED: Sodium Chloride 0.9% 1,000 ML IV SCH (23:00)
[2022-08-14] MEDS ORDERED: Iopamidol 755 MG/ML 50 ML Bottle IVPUSH ONE (23:07)
[2022-08-14] MEDS ORDERED: Sodium Chloride 0.9% 100 ML IV SCH (23:15)
== END 2022-08-15 01:30 | disposition home or self-care (01) ==
LOC: JD.ED 20:08
DX: R06.02 Shortness of breath (principal); I10 Essential (primary) hypertension; J44.9 Chronic obstructive pulmonary disease, unspecified; K21.9 Gastro-esophageal reflux disease without esophagitis; Z20.822 Contact with and (suspected) exposure to COVID-19; Z88.6 Allergy status to analgesic agent; Z79.899 Other long term (current) drug therapy; Z86.73 Personal history of transient ischemic attack (TIA), and cerebral infarction without residual deficits; Z87.891 Personal history of nicotine dependence
CPT/HCPCS: 0241U; 36415; 36600; 71045; 71045-26; 71275; 71275-26; 80053; 81001; 82803; 83605; 83880; 84484; 85007; 85027; 85379; 85610; 85730; 86140; 87040; 93005; 93010; 96360; 96361; 99284; 99285-25; J3490; J7030; Q9967

== ENCOUNTER 2023-09-14 17:55 | Emergency (ER) | payer MEDICARE, BC ==
[2023-09-14 18:23] LABS: BASOPHILS PERCENT AUTO 0.3 % (0.0-1.0); EOSINOPHILS PERCENT AUTO 0.1 % (0.0-6.0); HEMATOCRIT 43.5 % (42.0-52.0); HEMOGLOBIN 14.4 gm/dl (14.0-18.0); IMMATURE GRAN ABSOLUTE AUTO 0.17 K/mm3 (0.00-0.05); IMMATURE GRAN PERCENT AUTO 1.7 % (0.0-0.4); LYMPHOCYTES ABSOLUTE AUTO 0.4 K/mm3 (1.0-4.8); LYMPHOCYTES PERCENT AUTO 4.1 % (24.0-44.0); MEAN CORPUSCULAR HEMOGLOBIN 33.3 pg (28.0-32.0); MEAN CORPUSCULAR HGB CONC 33.1 g/dl (32.0-36.0); MEAN CORPUSCULAR VOLUME 100.5 fl (83.0-99.0); MEAN PLATELET VOLUME 10.8 fl (9.4-12.4); MONOCYTES ABSOLUTE AUTO 0.8 K/mm3 (0.0-0.8); MONOCYTES PERCENT AUTO 7.9 % (0.0-8.0); NEUTROPHILS ABSOLUTE AUTO 8.3 K/mm3 (1.8-7.7); NEUTROPHILS PERCENT AUTO 85.9 % (41.0-71.0); PLATELET COUNT,PLT 188 K/mm3 (150-400); RED BLOOD CELL COUNT 4.33 M/mm3 (4.52-5.90); WHITE BLOOD CELL COUNT,WBC 9.72 K/mm3 (3.9-11.3)
[2023-09-14] MEDS: Sodium Chloride 0.9% 1,000 ML IV STA (18:44)
[2023-09-14] MEDS: Ondansetron 4 MG/2 ML SDV IVPUSH ONE ×2 (18:44→20:20)
[2023-09-14] MEDS: Pantoprazole 40 MG Vial IVPUSH ONE (18:44)
[2023-09-14] MEDS: Pantoprazole 80 MG in Sodium Chloride 0.9% 100 ML IV SCH (18:45)
[2023-09-14] MEDS: Pantoprazole 40 MG Vial ONE (18:45)
[2023-09-14] MEDS: Sodium Chloride 0.9% 10 ML Syringe FLUSH PRN (18:46)
[2023-09-14 18:47] LABS: A/G RATIO 0.8 (1-2); ALANINE AMINOTRANSFERASE,ALT 31 U/L (16-63); ALBUMIN 3.5 g/dl (3.4-5.0); ALKALINE PHOSPHATASE 103 U/L (46-116); ANION GAP 14.2 (5-15); ASPARTATE AMNIOTRANSFERASE,AST 27 U/L (15-37); BILIRUBIN TOTAL 0.7 mg/dL (0.2-1.0); BLOOD UREA NITROGEN,BUN 13 mg/dL (7-18); BUN/CREATININE RATIO 16.3 (14-18); C-REACTIVE PROTEIN 2.56 mg/dL (<0.30); CALCIUM 8.8 mg/dL (8.5-10.1); CARBON DIOXIDE,CO2 29 mEq/L (21-32); CHLORIDE,CL 101 mEq/L (98-107); CREATININE 0.8 mg/dL (0.7-1.3); ESTIMATED GFR 87 mL/min (>60); GLUCOSE RANDOM 140 mg/dL (70-99); LIPASE 30 U/L (16-77); POTASSIUM,K 4.2 mEq/L (3.5-5.1); PROTEIN TOTAL,TP 7.9 g/dl (6.4-8.2); SODIUM,NA 140 mEq/L (136-145)
[2023-09-14] MEDS: Iopamidol 612 MG/ML 100 ML Bottle IVPUSH ONE (18:59)
[2023-09-14] MEDS: Sucralfate Suspension 1 GM/10 ML Cup PO ONE (20:21)
== END 2023-09-14 22:34 ==
LOC: JD.ED 17:55
DX: J44.9 Chronic obstructive pulmonary disease, unspecified (principal); K92.0 Hematemesis; I69.30 Unspecified sequelae of cerebral infarction; I10 Essential (primary) hypertension; K21.9 Gastro-esophageal reflux disease without esophagitis; Z79.899 Other long term (current) drug therapy; Z79.52 Long term (current) use of systemic steroids; Z79.51 Long term (current) use of inhaled steroids; Z88.6 Allergy status to analgesic agent
CPT/HCPCS: 36415; 74177; 80053; 83690; 85025; 86140; 86850; 86900; 86901; 93005; 96365; 96366; 96375; 96376; 99285; A9270; C9113; J2405; J3490; J7030; Q9967; 93010; 99284